=== PATIENT | male | born 1955 | race Caucasian/White ===

== ENCOUNTER 2018-08-20 11:23 | Inpatient (IN) | payer MEDICARE, MEDICAID ==
[~2018-08-20] VITALS: Ht 182.9 cm; Wt 83.0 kg
[2018-08-20] MEDS ORDERED: TEMAZEPAM 7.5 MG CAPSULE PO PRN (12:30)
[2018-08-20] MEDS ORDERED: MAG HYDROX/AL HYDROX/SIMETH 30 ML UDC PO PRN (12:30)
[2018-08-20] MEDS ORDERED: ACETAMINOPHEN 325 MG TABLET PO PRN (12:30)
[2018-08-20] MEDS ORDERED: MAGNESIUM HYDROXIDE 30 ML UDC PO PRN (12:30)
[2018-08-20] MEDS ORDERED: LORAZEPAM 0.5 MG TABLET PO PRN (12:30)
[2018-08-20 13:50] VITALS: BP 132/80
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
[2018-08-20] MEDS ORDERED: AMLO5TAB9 PO (15:46)
[2018-08-20] MEDS ORDERED: HALO10TA13 PO (15:46)
[2018-08-20] MEDS ORDERED: DIVA500T2 PO (15:46)
[2018-08-20] MEDS ORDERED: BENZ2TAB7 PO (15:46)
[2018-08-20] MEDS ORDERED: DIPH25CA83 PO (15:46)
[2018-08-20 16:00] VITALS: BP 103/69
[2018-08-20] MEDS: BENZTROPINE MESYLATE (1 MG) 1 MG TABLET PO SCH (16:52)
[2018-08-20] MEDS ORDERED: diphenhydrAMINE HCL 25 MG CAPSULE PO SCH (18:00)
[2018-08-20 20:13] VITALS: BP 134/77
[2018-08-20] MEDS: diphenhydrAMINE HCL 25 MG CAPSULE PO SCH (21:18)
[2018-08-20] MEDS ORDERED: DIVALPROEX SODIUM 250 MG TABLET.DR PO ONE (21:30)
[2018-08-20] MEDS ORDERED: BENZTROPINE MESYLATE (1 MG) 1 MG TABLET PO SCH (22:00)
[2018-08-20] MEDS ORDERED: DIVALPROEX SODIUM 250 MG TABLET.DR PO SCH (22:00)
[2018-08-20] MEDS: HALOPERIDOL 5 MG TABLET PO SCH (22:11)
[2018-08-21 06:27] LABS: BASOPHILS % (AUTO) 0.9 % (0.0-2.0); EOSINOPHILS % (AUTO) 2.2 % (0.0-6.0); HEMATOCRIT 41 % (39-51); HEMOGLOBIN 13.8 g/dL (13.5-17.5); LYMPHOCYTES # (AUTO) 1.5 /CMM (0.8-4.8); LYMPHOCYTES % (AUTO) 31.4 % (20.0-44.0); MEAN CORPUSCULAR HGB CONC 34 g/dl (31.0-36.0); MEAN CORPUSCULAR VOLUME 94 fL (80-96); MONOCYTES # (AUTO) 0.5 /CMM (0.1-1.30); MONOCYTES % (AUTO) 10.1 % (2.0-12.0); NEUTROPHILS # (AUTO) 2.6 /CMM (1.8-8.9); NEUTROPHILS % (AUTO) 55.4 % (43.0-81.0); PLATELET COUNT (AUTO) 163 /CMM (150-450); WHITE BLOOD COUNT (AUTO) 4.6 K/uL (4.3-11.0)
[2018-08-21 06:41] LABS: ALBUMIN 3.6 g/dL (3.4-5.0); BILIRUBIN,TOTAL 1.4 mg/dL (0.2-1.0); CALCIUM, SERUM 9.3 mg/dL (8.5-10.1); CREATININE 1.3 mg/dL (0.6-1.3); MAGNESIUM 1.8 mg/dL (1.8-2.4); PHOSPHORUS 3.6 mg/dL (2.5-4.9); POTASSIUM 4.4 mmol/L (3.5-5.1); TOTAL PROTEIN, SERUM 6.5 g/dL (6.4-8.2)
[2018-08-21 06:45] LABS: CHOLESTEROL 246 mg/dL (<200); HDL CHOLESTEROL 58 mg/dL (40-60); LDL 162 mg/dL (0-99); TRIGLYCERIDES 131 mg/dL (30-150)
[2018-08-21 08:00] VITALS: BP 113/76
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
[2018-08-21] MEDS: HALOPERIDOL 5 MG TABLET PO SCH ×3 (09:16→16:23)
[2018-08-21] MEDS: DIVALPROEX SODIUM 250 MG TABLET.DR PO SCH ×3 (09:16→16:47)
[2018-08-21] MEDS: BENZTROPINE MESYLATE (1 MG) 1 MG TABLET PO SCH ×2 (09:16→16:23)
[2018-08-21] MEDS: AMLODIPINE BESYLATE 5 MG TABLET PO SCH (09:16)
--- NOTE | 2018-08-21 11:09 | NUR ---
SW contacted amirah Cunha at [facility] [address] [place], [place] [phone] who stated pt is welcomed back to the facility as long as pt is stable and compliant with medication.
--- NOTE | 2018-08-21 11:48 | NUR ---
INITIAL DISCHARGE PLAN: Patient will return to [facility]. FERNANDA contacted Larry Simmons case manger at [facility] [address] [place], [place] [phone] who stated pt is welcomed back to the facility as long as pt is stable and compliant with medication. FERNANDA will help form a safe and proper discharge in collaboration with .
[2018-08-21 16:00] VITALS: BP 135/73
[2018-08-21 20:00] VITALS: BP 119/79
[2018-08-21] MEDS: ATORVASTATIN 10 MG TABLET PO SCH (21:54)
[2018-08-21] MEDS: diphenhydrAMINE HCL 25 MG CAPSULE PO SCH (21:54)
[2018-08-22 08:02] VITALS: BP 105/64
[2018-08-22] MEDS: BENZTROPINE MESYLATE (1 MG) 1 MG TABLET PO SCH ×2 (09:32→17:26)
[2018-08-22] MEDS: DIVALPROEX SODIUM 250 MG TABLET.DR PO SCH ×3 (09:34→17:26)
[2018-08-22] MEDS: HALOPERIDOL 5 MG TABLET PO SCH ×3 (09:34→17:26)
[2018-08-22] MEDS: AMLODIPINE BESYLATE 5 MG TABLET PO SCH (09:39)
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
[2018-08-22 16:04] VITALS: BP 120/78
--- NOTE | 2018-08-22 16:08 | NUR ---
Patient was calm, cooperative, wee groomed, paced the hallway and ate all his meals. There was no violence or any homicidal attempts on staff or fellow patients. Will continue to monitor patient.
[2018-08-22 20:00] VITALS: BP 154/90
[2018-08-22] MEDS: ATORVASTATIN 10 MG TABLET PO SCH (21:30)
[2018-08-22] MEDS: diphenhydrAMINE HCL 25 MG CAPSULE PO SCH (21:30)
[2018-08-23 08:00] VITALS: BP 109/65
[2018-08-23] MEDS: BENZTROPINE MESYLATE (1 MG) 1 MG TABLET PO SCH ×2 (08:04→16:07)
[2018-08-23] MEDS: DIVALPROEX SODIUM 250 MG TABLET.DR PO SCH ×3 (08:04→16:06)
[2018-08-23] MEDS: HALOPERIDOL 5 MG TABLET PO SCH ×3 (08:04→16:06)
[2018-08-23] MEDS: AMLODIPINE BESYLATE 5 MG TABLET PO SCH (08:05)
[2018-08-23 16:00] VITALS: BP 104/56
[2018-08-23 20:00] VITALS: BP 100/64
[2018-08-23] MEDS: ATORVASTATIN 10 MG TABLET PO SCH (22:07)
[2018-08-23] MEDS: diphenhydrAMINE HCL 25 MG CAPSULE PO SCH (22:07)
[2018-08-24 08:00] VITALS: BP 106/64
[2018-08-24] MEDS: AMLODIPINE BESYLATE 5 MG TABLET PO SCH (09:00)
[2018-08-24] MEDS: DIVALPROEX SODIUM 250 MG TABLET.DR PO SCH ×3 (09:04→16:22)
[2018-08-24] MEDS: HALOPERIDOL 5 MG TABLET PO SCH ×3 (09:04→16:23)
[2018-08-24] MEDS: BENZTROPINE MESYLATE (1 MG) 1 MG TABLET PO SCH ×2 (09:04→16:23)
[2018-08-24 19:26] VITALS: BP 104/62
[2018-08-24] MEDS: ATORVASTATIN 10 MG TABLET PO SCH (22:05)
[2018-08-24] MEDS: diphenhydrAMINE HCL 25 MG CAPSULE PO SCH (22:05)
[2018-08-25 08:00] VITALS: BP 113/66
[2018-08-25] MEDS: AMLODIPINE BESYLATE 5 MG TABLET PO SCH (09:00)
[2018-08-25] MEDS: HALOPERIDOL 5 MG TABLET PO SCH ×3 (09:19→16:42)
[2018-08-25] MEDS: BENZTROPINE MESYLATE (1 MG) 1 MG TABLET PO SCH ×2 (09:19→16:42)
[2018-08-25] MEDS: DIVALPROEX SODIUM 250 MG TABLET.DR PO SCH ×3 (09:20→16:42)
[2018-08-25 16:00] VITALS: BP 121/90
[2018-08-25 19:42] VITALS: BP 117/69
[2018-08-25] MEDS: diphenhydrAMINE HCL 25 MG CAPSULE PO SCH (21:10)
[2018-08-25] MEDS: ATORVASTATIN 10 MG TABLET PO SCH (21:11)
[2018-08-26 08:00] VITALS: BP 101/62
[2018-08-26] MEDS: BENZTROPINE MESYLATE (1 MG) 1 MG TABLET PO SCH ×2 (08:27→12:02)
[2018-08-26] MEDS: DIVALPROEX SODIUM 250 MG TABLET.DR PO SCH ×2 (08:27→12:02)
[2018-08-26] MEDS: HALOPERIDOL 5 MG TABLET PO SCH ×2 (08:27→12:02)
[2018-08-26 08:30] VITALS: BP 101/62
[2018-08-26] MEDS: AMLODIPINE BESYLATE 5 MG TABLET PO SCH (08:30)
--- NOTE | 2018-08-26 08:59 | NUR ---
FERNANDA contacted Becky, retail warehouse supervisor at [facility] [address] [place], [place] [phone] and informed her pt was discharging on this present day. Becky requested pt be discharged via taxi as she stated pt is mandated to be at that home and she was concerned pt would not return if given a TAP Card.
--- NOTE | 2018-08-26 09:15 | NUR ---
DISCHARGE NOTE: Pt will be discharged at 1:00pm via [facility] TAXI VOUCHER to [facility] [address] [place], [place] [phone]. SW contacted Becky the datawarehouse developer at [facility] who agrees with discharge. Pts mood is euthymic with congruent affect. Pt denied visual/auditory hallucinations and denied suicidal/homicidal ideation. Pt was given a referral to [address] [address] and was encouraged to present at 9:00am for an intake and also provided him with a referral to [place] [id number] [facility] [id number] . The multidisciplinary exit care form was done, printed, signed, and given to the patient.
--- NOTE | 2018-08-26 10:50 | NUR ---
FERNANDA faxed clinical information to Larry Simmons, clinician at [facility] [address] [facility], [place] [phone] .
--- NOTE | 2018-08-26 14:33 | NUR ---
NURSING DISCHARGE NOTE: PT WAS DISCHARGED TODAY AT 1430 TO [facility] AT [address] [place], [place]. , VIA TAXI. PT LEFT THE UNIT AMBULATORY ACCOMPANIED BY 1 OVERLOCK HEMMER TO THE TAXI. REPORT WAS GIVEN TO OLEGARIO AT [phone] AND PRESCRIPTIONS WERE FAXED TO [facility] AT . DISCHARGE ORDERS WERE GIVEN BY DR. JUNIOR WITH PRESCRIPTIONS WELL. PT HAS BEEN MEDICALLY CLEARED FOR DISCHARGE BY DR. PHELPS WITH ORDER TO CONTINUE ALL ROUTINE MEDS. PT IS A&OX3-4, CALM, COOPERATIVE, PLEASANT, MED COMPLIANT, DENIES SI/HI/AVH AT THE TIME OF DISCHARGE. NO S/S OF ANY DISTRESS NOTED. NO C/O PAIN OR ANY DISCOMFORT. SKIN INTACT. VS STABLE. PT WAS COOPERATIVE WITH DISCHARGE PROCESS AND HAS SIGNED ALL PAPERWORK. PRESCRIPTIONS WERE GIVEN TO PT WELL AND PT HAS VERBALIZED UNDERSTANDING OF MEDICATIONS AND DISCHARGE INSTRUCTIONS. ALL BELONGINGS WERE GIVEN TO PT WELL.
--- NOTE | 2018-08-26 14:50 | NUR ---
Group Note: Pt did not participate in the group therapy session 08/26/18 at 2pm because he was discharged at 2:30PM.
== END 2018-08-26 14:30 | disposition home or self-care (01) | DRG 885 ==
LOC: GPS 11:23
PROVIDERS: ADMIT Psychiatry & Neurology Psychiatry; ATTEND Nurse Practitioner Acute Care
DX: F25.0 Schizoaffective disorder, bipolar type (principal); I10 Essential (primary) hypertension; Z85.6 Personal history of leukemia; Z85.46 Personal history of malignant neoplasm of prostate; E78.5 Hyperlipidemia, unspecified; Z91.5 Personal history of self-harm; Z91.14 Patient's other noncompliance with medication regimen; F32.9 Major depressive disorder, single episode, unspecified; Z79.899 Other long term (current) drug therapy; F29 Unspecified psychosis not due to a substance or known physiological condition
CPT/HCPCS: 36415; 80053-TC; 80061-TC; 80164-TC; 83735-TC; 84100-TC; 85025-TC; 87081-TC; Q0163

== ENCOUNTER 2020-03-15 04:56 | Inpatient (IN) | payer MEDICARE, OTHER ==
[~2020-03-15] VITALS: Ht 177.8 cm; Wt 64.4 kg
[~2020-03-15 04:56] MED LIST: AMLO-212 PO; BENZ2TAB7 PO; DIPH25CA83 PO; DIVA500T2 PO; HALO10TA13 PO
--- NOTE | 2020-03-15 05:15 | NUR ---
Khalida crane in [facility] - 03/15/20 at 0702 by EUGENIA left hand 18g and left ac [address]
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
--- NOTE | 2020-03-15 05:20 | NUR ---
left hand 18g and left ac [address]
--- NOTE | 2020-03-15 05:22 | NUR ---
pt taken to ct
[2020-03-15 05:28] LABS: BASOPHILS % (AUTO) 0.4 % (0.0-2.0); EOSINOPHILS % (AUTO) 0.6 % (0.0-6.0); HEMATOCRIT 48 % (39-51); HEMOGLOBIN 16.4 g/dL (13.5-17.5); LYMPHOCYTES # (AUTO) 1.1 /CMM (0.8-4.8); LYMPHOCYTES % (AUTO) 14.7 % (20.0-44.0); MEAN CORPUSCULAR HGB CONC 34 g/dl (31.0-36.0); MEAN CORPUSCULAR VOLUME 93 fL (80-96); MONOCYTES # (AUTO) 0.6 /CMM (0.1-1.30); MONOCYTES % (AUTO) 8.3 % (2.0-12.0); NEUTROPHILS # (AUTO) 5.5 /CMM (1.8-8.9); PLATELET COUNT (AUTO) 134 /CMM (150-450); RED BLOOD CELL COUNT(AUTO) 5.19 MIL/uL (4.5-6.0); WHITE BLOOD COUNT (AUTO) 7.3 K/uL (4.3-11.0)
--- NOTE | 2020-03-15 05:30 | NUR ---
covid swab sent to lab
[2020-03-15 05:42] LABS: ALANINE AMINOTRANSFERASE 40 U/L (12-78); ALBUMIN 4.1 g/dL (3.4-5.0); ALCOHOL, BLOOD < 3 mg/dL (0-0); ALKALINE PHOSPHATASE 73 U/L (46-116); ASPARTATE AMINOTRANSFERASE 22 U/L (15-37); BILIRUBIN,DIRECT 0.4 mg/dL (0.0-0.2); CALCIUM, SERUM 9.9 mg/dL (8.5-10.1); CARBON DIOXIDE 28 mmol/L (21-32); CHLORIDE 97 mmol/L (98-107); CREATININE 1.3 mg/dL (0.6-1.3); GLUCOSE 180 mg/dL (74-106); POTASSIUM 3.9 mmol/L (3.5-5.1); SODIUM SERUM 135 mmol/L (136-145); TOTAL PROTEIN, SERUM 7.7 g/dL (6.4-8.2); UREA NITROGEN, BLOOD 26 mg/dL (7-18)
[2020-03-15 05:49] LABS: ACETAMINOPHEN < 10 ug/ml (10-30)
--- NOTE | 2020-03-15 06:05 | NUR ---
urine sent to lab
[2020-03-15 06:59] LABS: BILIRUBIN,URINE NEGATIVE (NEGATIVE); COLOR,URINE YELLOW (YELLOW); LEUKOCYTE ESTERASE ,URINE NEGATIVE (NEGATIVE); NITRITE, URINE NEGATIVE (NEGATIVE); PROTEIN,URINE NEGATIVE (NEGATIVE); UGLUCOSE 250 MG/DL mg/dL (NEGATIVE)
--- NOTE | 2020-03-15 07:16 | NUR ---
ART JAILKEEPER PAGED
--- NOTE | 2020-03-15 08:08 | NUR ---
ART CAPILLA AT BEDSIDE
[2020-03-15 08:46] LABS: BACTERIA,URINE Rare /HPF (None Seen); RBC,URINE 0-2 /HPF (0-2); SQUAMOUS EPITHELIAL CELL,UR Rare /HPF (None Seen); WBC,URINE 0-2 /HPF (0-3)
[2020-03-15] MEDS ORDERED: ZIPR40CA2 PO (08:57)
[2020-03-15] MEDS ORDERED: LINA5TAB PO (08:57)
[2020-03-15] MEDS ORDERED: ATOR40TA PO (08:57)
--- NOTE | 2020-03-15 11:46 | NUR ---
PATIENT IN BED ASLEEP, EASILY AROUSABLE BY VOICE. HOOKED TO MONITOR. WILL CONTINUE TO MONITOR ACCRODINGLY. KEPT SAFE AND COMFORTABLE
--- NOTE | 2020-03-15 13:47 | NUR ---
COVID PCR SWAB DONE AND SENT TO LAB
--- NOTE | 2020-03-15 15:23 | NUR ---
GOT BED 216-B
--- NOTE | 2020-03-15 15:52 | NUR ---
REPORT GIVEN TO YAMILE MACIAS OF [employer]
[2020-03-15 16:00] VITALS: BP 98/64
--- NOTE | 2020-03-15 16:07 | NUR ---
IV removed. Catheter intact and site benign. Pressure and 4x4 applied to site. No bleeding noted.
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
[2020-03-15] MEDS ORDERED: DEXTROSE 50%-WATER 50 ML DISP.SYRIN IV PRN (17:00)
[2020-03-15] MEDS ORDERED: MAGNESIUM HYDROXIDE 30 ML UDC PO PRN (17:00)
[2020-03-15] MEDS ORDERED: ACETAMINOPHEN 325 MG TABLET PO PRN (17:00)
[2020-03-15] MEDS ORDERED: MAG HYDROX/AL HYDROX/SIMETH 30 ML UDC PO PRN (17:00)
[2020-03-15] MEDS ORDERED: BLOOD SUGAR DIAGNOSTIC 1 EACH STRIP IN ONE (17:00)
[2020-03-15] MEDS: BLOOD SUGAR DIAGNOSTIC 1 EACH STRIP IN SCH ×2 (17:31→21:30)
[2020-03-15 20:59] VITALS: BP 93/45
[2020-03-15] MEDS: INSULIN REGULAR, HUMAN 100 UNIT/ML 3 ML VIAL SQ PRN (21:41)
--- NOTE | 2020-03-15 21:42 | NUR ---
GPS RN note; EW=389 mg/dl,refused coverage.
[2020-03-15] MEDS ORDERED: HALOPERIDOL 5 MG TABLET PO ONE (22:00)
[2020-03-15] MEDS: BENZTROPINE MESYLATE (1 MG) 1 MG TABLET PO SCH (22:11)
[2020-03-15] MEDS: DIVALPROEX SODIUM 250 MG TABLET.DR PO SCH (22:11)
[2020-03-16] MEDS: BLOOD SUGAR DIAGNOSTIC 1 EACH STRIP IN SCH ×4 (07:30→22:11)
[2020-03-16 08:00] VITALS: BP 116/84
[2020-03-16] MEDS: BENZTROPINE MESYLATE (1 MG) 1 MG TABLET PO SCH ×3 (09:44→16:16)
[2020-03-16] MEDS: HALOPERIDOL 5 MG TABLET PO SCH ×3 (09:44→16:16)
[2020-03-16] MEDS: DIVALPROEX SODIUM 250 MG TABLET.DR PO SCH ×3 (09:44→16:16)
[2020-03-16] MEDS: ATORVASTATIN 40 MG TABLET PO SCH (09:45)
[2020-03-16] MEDS: LINAGLIPTIN 5 MG TABLET PO SCH (09:45)
[2020-03-16] MEDS: AMLODIPINE BESYLATE 5 MG TABLET PO SCH (09:46)
--- NOTE | 2020-03-16 15:35 | NUR ---
RN-CO: ATIVAN GIVEN FOR INAPPROPRIATE BEHAVIOR. M/B PT IS VERY TOUCHY TO STAFF.
[2020-03-16 15:41] LABS: ALBUMIN 3.2 g/dL (3.4-5.0); BILIRUBIN,TOTAL 1.4 mg/dL (0.2-1.0); CALCIUM, SERUM 9.1 mg/dL (8.5-10.1); CREATININE 1.5 mg/dL (0.6-1.3); POTASSIUM 3.7 mmol/L (3.5-5.1); TOTAL PROTEIN, SERUM 6.1 g/dL (6.4-8.2)
[2020-03-16 15:43] LABS: CHOLESTEROL 195 mg/dL (<200); HDL CHOLESTEROL 76 mg/dL (40-60); LDL 96 mg/dL (0-99); TRIGLYCERIDES 113 mg/dL (30-150)
[2020-03-16 16:00] VITALS: BP 99/57
[2020-03-16] MEDS: LORAZEPAM 0.5 MG TABLET PO PRN (16:17)
[2020-03-16] MEDS: INSULIN REGULAR, HUMAN 100 UNIT/ML 3 ML VIAL SQ PRN (16:59)
[2020-03-16 20:30] VITALS: BP 101/62
--- NOTE | 2020-03-16 22:12 | NUR ---
RN note: BS =109 mg/dl ,no coverage.
[2020-03-17] MEDS: BLOOD SUGAR DIAGNOSTIC 1 EACH STRIP IN SCH ×4 (07:55→22:09)
[2020-03-17] MEDS: INSULIN REGULAR, HUMAN 100 UNIT/ML 3 ML VIAL SQ PRN ×3 (07:57→22:21)
[2020-03-17 08:00] VITALS: BP 104/73
[2020-03-17] MEDS: ATORVASTATIN 40 MG TABLET PO SCH (09:28)
[2020-03-17] MEDS: LINAGLIPTIN 5 MG TABLET PO SCH (09:28)
[2020-03-17] MEDS: HALOPERIDOL 5 MG TABLET PO SCH ×4 (09:28→22:11)
[2020-03-17] MEDS: BENZTROPINE MESYLATE (1 MG) 1 MG TABLET PO SCH ×3 (09:28→16:29)
[2020-03-17] MEDS: DIVALPROEX SODIUM 250 MG TABLET.DR PO SCH ×3 (09:28→16:29)
[2020-03-17] MEDS: AMLODIPINE BESYLATE 5 MG TABLET PO SCH (09:29)
[2020-03-17 16:00] VITALS: BP 112/64
--- NOTE | 2020-03-17 19:30 | NUR ---
GPS RN NOTE, RECEIVED PATIENT AWAKE AND IN BED, NO S/S OR COMPLAINTS OF PAIN AT THIS TIME. PATIENT IS DISPLAYING NO S/S OF APPARENT DISTRESS AT THIS TIME. PATIENT BREATHING IS UNLABORED WITH EQUAL RISE AND FALL OF THE CHEST. PATIENT IS ALERT AND ORIENTED X 1 ON ROOM AIR WITH A SPO2 98%. PATIENT IS COMPLIANT WITH MEDICATIONS, ANXIOUS AT TIMES, CONFUSED, NEEDS REDIRECTION, AND COOPERATIVE. PATIENT DENIES SUICIDAL AND HOMICIDAL IDEATIONS AT THIS TIME. PATIENT ASSISTED WITH TURNING AND REPOSITIONING Q2HR AND PRN FOR COMFORT AND CIRCULATION. PATIENT HAS NO NEEDS AT THIS TIME. PATIENT EDUCATED ON THE USE OF THE CALL ROJAS. PATIENT BED SIDE RAILS UP X 2 FOR SAFETY. PATIENT BED IS LOCKED, LOW, WITH BED ALARM ON. WILL CONTINUE TO MONITOR THIS PATIENT Q15 MINUTES WITH THE HELP OF STAFF TO MAINTAIN SAFETY.
[2020-03-17 19:50] VITALS: BP 126/81
[2020-03-18] MEDS: BLOOD SUGAR DIAGNOSTIC 1 EACH STRIP IN SCH ×4 (07:26→21:57)
[2020-03-18] MEDS: INSULIN REGULAR, HUMAN 100 UNIT/ML 3 ML VIAL SQ PRN ×4 (07:28→22:10)
[2020-03-18 08:00] VITALS: BP 137/90
[2020-03-18] MEDS: DIVALPROEX SODIUM 250 MG TABLET.DR PO SCH ×3 (08:25→16:32)
[2020-03-18] MEDS: LINAGLIPTIN 5 MG TABLET PO SCH (08:25)
[2020-03-18] MEDS: ATORVASTATIN 40 MG TABLET PO SCH (08:25)
[2020-03-18] MEDS: HALOPERIDOL 5 MG TABLET PO SCH ×3 (08:27→21:00)
[2020-03-18] MEDS: BENZTROPINE MESYLATE (1 MG) 1 MG TABLET PO SCH ×3 (08:27→16:32)
[2020-03-18] MEDS: AMLODIPINE BESYLATE 5 MG TABLET PO SCH (08:28)
--- NOTE | 2020-03-18 09:00 | NUR ---
RN NOTE- PT IN ROOM CONFUSED W TREMULOUSNESS AND WEAKNESS, PT ATTEMPTS TO GET OOB AND GO TO BR ON OWN,. BED SIDE COMMODE AND FWW PLACED AT BEDSIDE AND BED ALARM ON. THIS RN STATIONED OUTSIDE ROOM. PO INTAKE GOOD MED COMPLIANT
--- NOTE | 2020-03-18 10:24 | NUR ---
Facility Contact: FERNANDA called [facility] ([phone]) and was informed that this location is a hospital. FERNANDA asked to be transferred to Medical Records to see if they have an alternative address or any contact informations for family. FERNANDA faxed a request for this information as directed to the fax number: [phone].
--- NOTE | 2020-03-18 11:41 | NUR ---
Initial Discharge Plan: Pt is currently homeless. Per pt, he was unable to state a clear discharge plan. SW will work with the pts MD and the pt regarding appropriate discharge planning. SW will form a safe and proper discharge.
--- NOTE | 2020-03-18 11:41 | NUR ---
Family Contact: SW called the pts sister, Criss ([phone]), and discussed that the pt has nowhere to live at this time and that he has a transplant case manager, Hannah, who is attempting to secure placement. SW stated that she will speak to him.
--- NOTE | 2020-03-18 11:42 | NUR ---
B2B Sales RepresentativeProduction Ski Repairer: SW called the pts gearcase assembler, Hannah ([phone]), and left a voicemail stating that the SW would like to discuss the pts discharge plan.
--- NOTE | 2020-03-18 15:55 | NUR ---
RN NOTE- PT FOUND W CONTINUED AMBULATING IN ROOM AND HALLS WITHOUT ASSIST OR FWW. REDIRECTED AND ASSISTED. PT CONFUSED. STATES "IM DIZZY" VS- BP- 124/78, HR-90. RR- 18, T- 98.0 SATS 98%RA. ACCU CHECK/BS- 127 ORIENTED TO PERSON ONLY. PLACED IN LATANYA CHAIR AT PRESENT. MONITOR.
[2020-03-18 16:00] VITALS: BP 125/69
--- NOTE | 2020-03-18 19:30 | NUR ---
GPS RN NOTE, RECEIVED PATIENT AWAKE AND IN BED, NO S/S OR COMPLAINTS OF PAIN AT THIS TIME. PATIENT IS DISPLAYING NO S/S OF APPARENT DISTRESS AT THIS TIME. PATIENT BREATHING IS UNLABORED WITH EQUAL RISE AND FALL OF THE CHEST. PATIENT IS ALERT AND ORIENTED X 1 ON ROOM AIR WITH A SPO2 96%. PATIENT IS COMPLIANT WITH MEDICATIONS, ANXIOUS AT TIMES, CONFUSED, NEEDS REDIRECTION, AND COOPERATIVE. PATIENT DENIES SUICIDAL AND HOMICIDAL IDEATIONS AT THIS TIME. PATIENT ASSISTED WITH TURNING AND REPOSITIONING Q2HR AND PRN FOR COMFORT AND CIRCULATION. PATIENT HAS NO NEEDS AT THIS TIME. PATIENT EDUCATED ON THE USE OF THE CALL ROJAS. PATIENT BED SIDE RAILS UP X 2 FOR SAFETY. PATIENT BED IS LOCKED, LOW, WITH BED ALARM ON. WILL CONTINUE TO MONITOR THIS PATIENT Q15 MINUTES WITH THE HELP OF STAFF TO MAINTAIN SAFETY.
[2020-03-18 20:00] VITALS: BP 113/68
--- NOTE | 2020-03-18 21:50 | NUR ---
GPS RN NOTE, PATIENT REFUSED HALDOL 10MG PO Q 2100 SCHEDULED. OFFERED THREE TIMES AND STILL PATIENT REFUSED STATING, " NO I JUST DON'T FEEL GOOD AND I THINK IT'S THE MEDICATION ". EDUCATED PATIENT ON THE RISKS AND BENEFITS OF TAKING AND REFUSING HALDOL. WILL CONTINUE TO MONITOR THIS PATIENT.
--- NOTE | 2020-03-18 21:57 | NUR ---
GPS RN NOTE, PERFORMED ACCU CHECK ON PATIENT WITH A BLOOD SUGAR RESULT OF 253. GAVE 6 UNITS OF REGULAR INSULIN PER SLIDING SCALE. WILL CONTINUE TO MONITOR THIS PATIENT.
[2020-03-19] MEDS: BLOOD SUGAR DIAGNOSTIC 1 EACH STRIP IN SCH ×4 (07:03→21:48)
[2020-03-19] MEDS: INSULIN REGULAR, HUMAN 100 UNIT/ML 3 ML VIAL SQ PRN ×2 (07:05→17:28)
[2020-03-19 08:00] VITALS: BP 146/90
[2020-03-19] MEDS: DIVALPROEX SODIUM 250 MG TABLET.DR PO SCH ×3 (08:12→16:29)
[2020-03-19] MEDS: HALOPERIDOL 5 MG TABLET PO SCH ×3 (08:12→21:37)
[2020-03-19] MEDS: BENZTROPINE MESYLATE (1 MG) 1 MG TABLET PO SCH ×3 (08:12→16:29)
[2020-03-19] MEDS: LINAGLIPTIN 5 MG TABLET PO SCH (08:13)
[2020-03-19] MEDS: AMLODIPINE BESYLATE 5 MG TABLET PO SCH (08:13)
[2020-03-19] MEDS: ATORVASTATIN 40 MG TABLET PO SCH (08:13)
--- NOTE | 2020-03-19 11:32 | NUR ---
RN-CO: PT REFUSED MORNING MEDS AND BEFORE LUNCH ACCU CHECK.
[2020-03-19] MEDS: LORAZEPAM 0.5 MG TABLET PO PRN ×2 (13:35→19:17)
[2020-03-19 16:00] VITALS: BP 100/64
--- NOTE | 2020-03-19 19:18 | NUR ---
RN-CO: ATIVAN 1 MG PO GIVEN AT 1705. FORGET TO SCAN AT 1705.
--- NOTE | 2020-03-19 19:30 | NUR ---
GPS RN NOTE, RECEIVED PATIENT AWAKE AND IN BED, NO S/S OR COMPLAINTS OF PAIN AT THIS TIME. PATIENT IS DISPLAYING NO S/S OF APPARENT DISTRESS AT THIS TIME. PATIENT BREATHING IS UNLABORED WITH EQUAL RISE AND FALL OF THE CHEST. PATIENT IS ALERT AND ORIENTED X 1 ON ROOM AIR WITH A SPO2 99%. PATIENT IS COMPLIANT WITH MEDICATIONS, ANXIOUS AT TIMES, CONFUSED, NEEDS REDIRECTION, AND COOPERATIVE. PATIENT DENIES SUICIDAL AND HOMICIDAL IDEATIONS AT THIS TIME. PATIENT ASSISTED WITH TURNING AND REPOSITIONING Q2HR AND PRN FOR COMFORT AND CIRCULATION. PATIENT HAS NO NEEDS AT THIS TIME. PATIENT EDUCATED ON THE USE OF THE CALL ROJAS. PATIENT BED SIDE RAILS UP X 2 FOR SAFETY. PATIENT BED IS LOCKED, LOW, WITH BED ALARM ON. WILL CONTINUE TO MONITOR THIS PATIENT Q15 MINUTES WITH THE HELP OF STAFF TO MAINTAIN SAFETY.
[2020-03-19 19:49] VITALS: BP 120/77
--- NOTE | 2020-03-19 21:48 | NUR ---
GPS RN NOTE, PERFORMED ACCU CHECK ON PATIENT WITH A BLOOD SUGAR RESULT OF 115. NO INSULIN GIVEN PER SLIDING SCALE. WILL CONTINUE TO MONITOR THIS PATIENT.
[2020-03-19] MEDS ORDERED: LOPERAMIDE HCL (2 MG CAP) 2 MG CAPSULE PO PRN (23:00)
--- NOTE | 2020-03-20 02:25 | NUR ---
GPS RN NOTE, PATIENT HAS A HAD TWO EPISODE OF DIARRHEA DURING PM SHIFT. PATIENT IS REQUESTING SOMETHING TO HELP STOP HIS DIARRHEA. PAGED [facility] AND INFORMED DR ZEN RIVAS OF MY FINDINGS. DR ZEN RIVAS ORDERED TO GIVE LOPERAMIDE 2MG CAP PO Q4HR PRN AND TO ISOLATE PATIENT. ALL ORDERS NOTED AND CARRIED OUT WILL CONTINUE TO MONITOR THIS PATIENT.
[2020-03-20] MEDS: LOPERAMIDE HCL (2 MG CAP) 2 MG CAPSULE PO PRN (03:53)
--- NOTE | 2020-03-20 03:53 | NUR ---
GPS RN NOTE, PATIENT HAS A COMPLAINT DIARRHEA. PATIENT IS REQUESTING SOMETHING TO HELP STOP HIS DIARRHEA. PATIENT VITAL SIGNS ARE STABLE. GAVE LOPERAMIDE 2MG CAP PO Q4HR PRN ORDERED. WILL CONTINUE TO MONITOR THIS PATIENT.
[2020-03-20] MEDS ORDERED: Z GUARD REMEDY 2 OZ OINT TP PRN (05:30)
[2020-03-20] MEDS: BLOOD SUGAR DIAGNOSTIC 1 EACH STRIP IN SCH ×4 (07:30→21:36)
[2020-03-20 07:36] LABS: CALCIUM, SERUM 9.4 mg/dL (8.5-10.1); MAGNESIUM 3.1 mg/dL (1.8-2.4); POTASSIUM 3.4 mmol/L (3.5-5.1)
[2020-03-20 07:53] LABS: BASOPHILS % (AUTO) 0.3 % (0.0-2.0); EOSINOPHILS % (AUTO) 0.7 % (0.0-6.0); HEMATOCRIT 41 % (39-51); HEMOGLOBIN 13.9 g/dL (13.5-17.5); LYMPHOCYTES # (AUTO) 1.6 /CMM (0.8-4.8); LYMPHOCYTES % (AUTO) 17.8 % (20.0-44.0); MEAN CORPUSCULAR HGB CONC 34 g/dl (31.0-36.0); MEAN CORPUSCULAR VOLUME 93 fL (80-96); MONOCYTES # (AUTO) 0.8 /CMM (0.1-1.30); MONOCYTES % (AUTO) 9.2 % (2.0-12.0); NEUTROPHILS # (AUTO) 6.3 /CMM (1.8-8.9); PLATELET COUNT (AUTO) 232 /CMM (150-450); RED BLOOD CELL COUNT(AUTO) 4.46 MIL/uL (4.5-6.0); WHITE BLOOD COUNT (AUTO) 8.8 K/uL (4.3-11.0)
[2020-03-20 08:00] VITALS: BP 136/64
[2020-03-20] MEDS ORDERED: POTASSIUM CHLORIDE 20 MEQ TAB.PRT.SR PO ONE (08:00)
[2020-03-20] MEDS: AMLODIPINE BESYLATE 5 MG TABLET PO SCH (08:57)
[2020-03-20] MEDS: ATORVASTATIN 40 MG TABLET PO SCH (08:57)
[2020-03-20] MEDS: LINAGLIPTIN 5 MG TABLET PO SCH (08:58)
[2020-03-20] MEDS: DIVALPROEX SODIUM 250 MG TABLET.DR PO SCH ×3 (08:58→17:49)
[2020-03-20] MEDS: BENZTROPINE MESYLATE (1 MG) 1 MG TABLET PO SCH ×3 (08:58→17:49)
[2020-03-20] MEDS: HALOPERIDOL 5 MG TABLET PO SCH ×3 (08:58→21:03)
[2020-03-20] MEDS: INSULIN REGULAR, HUMAN 100 UNIT/ML 3 ML VIAL SQ PRN ×3 (09:06→21:51)
[2020-03-20 16:00] VITALS: BP 101/56
[2020-03-20 22:16] VITALS: BP 121/50
[2020-03-20] MEDS: LORAZEPAM 0.5 MG TABLET PO PRN (23:02)
--- NOTE | 2020-03-20 23:09 | NUR ---
GPS RN note Pt is feeling anxious, screaming, yelling and keep taking the gown off. Administered ativan 0.5 mg/2tabs/po/prn as ordered. VS is stable. Safety precautions is maintained.
[2020-03-21] MEDS: INSULIN REGULAR, HUMAN 100 UNIT/ML 3 ML VIAL SQ PRN ×4 (07:50→22:44)
[2020-03-21] MEDS: BLOOD SUGAR DIAGNOSTIC 1 EACH STRIP IN SCH ×4 (07:57→22:36)
[2020-03-21] MEDS: AMLODIPINE BESYLATE 5 MG TABLET PO SCH (08:18)
[2020-03-21] MEDS: HALOPERIDOL 5 MG TABLET PO SCH ×2 (08:18→16:10)
[2020-03-21] MEDS: LINAGLIPTIN 5 MG TABLET PO SCH (08:18)
[2020-03-21] MEDS: ATORVASTATIN 40 MG TABLET PO SCH (08:18)
[2020-03-21] MEDS: DIVALPROEX SODIUM 250 MG TABLET.DR PO SCH ×3 (08:18→16:10)
[2020-03-21] MEDS: BENZTROPINE MESYLATE (1 MG) 1 MG TABLET PO SCH ×3 (08:18→16:10)
--- NOTE | 2020-03-21 09:00 | NUR ---
RN NOTE- PT CONFUSED DISORIENTED UNINTELLIGIBLE SPEECH AT TIMES DISORGANIZED PO INTAKE POOR THIS MORNING AT 25%, MED COMPLIANT, ANXIOUS. PLACED IN BED AFTER BREAKFAST. PT SLEEPING. REPOSITIONED MONITORING
[2020-03-21 09:25] VITALS: BP 151/91
--- NOTE | 2020-03-21 10:06 | NUR ---
SNF Referral: FERNANDA faxed a referral to [facility] with attention to Michelle to the fax number: [phone].
--- NOTE | 2020-03-21 10:50 | NUR ---
Individual Intervention: SW attempted to conduct an individual intervention with the pt but he appeared to be exhibiting inappropriate sexual behaviors and stated to the SW, "I wish you were my " as he was touching himself inappropriately. SW deemed the pt inappropriate for individual therapy at this time.
--- NOTE | 2020-03-21 12:58 | NUR ---
RN NOTE- PT W EPISODE LOOSE STOOLS. CLEANED UP AND CX TAKEN. LOPERAMIDE PRN GIVEN. WILL NOTIFY MD AWAIT ORDERS.
[2020-03-21] MEDS: LOPERAMIDE HCL (2 MG CAP) 2 MG CAPSULE PO PRN (13:02)
--- NOTE | 2020-03-21 13:09 | NUR ---
RN NOTE- PT HAD TWO LOOSE STOOLS OVERNIGHT 03/20 PLUS ONE JUST THIS AFTERNOON. DR CAST ORDERED LAB CX SENT FOR CDIFF.
[2020-03-21] MEDS: LORAZEPAM 0.5 MG TABLET PO PRN (13:44)
--- NOTE | 2020-03-21 13:46 | NUR ---
RN NOTE- PT ANXIOUS CLIMBING OUT OF LATANYA CHAIR BANGING ON TRAY. ATIVAN 1 MG GIVEN
--- NOTE | 2020-03-21 14:56 | NUR ---
RN NOTE- PT CALMER . RX EFFECTIVE
[2020-03-21 16:16] VITALS: BP 121/78
[2020-03-21 20:03] VITALS: BP 156/88
[2020-03-21] MEDS ORDERED: HALOPERIDOL 5 MG TABLET PO SCH (22:00)
[2020-03-22] MEDS: TEMAZEPAM 7.5 MG CAPSULE PO PRN (00:57)
[2020-03-22] MEDS: BLOOD SUGAR DIAGNOSTIC 1 EACH STRIP IN SCH ×4 (07:37→22:38)
[2020-03-22] MEDS: INSULIN REGULAR, HUMAN 100 UNIT/ML 3 ML VIAL SQ PRN ×3 (07:41→17:20)
[2020-03-22 08:00] VITALS: BP 115/62
[2020-03-22] MEDS: AMLODIPINE BESYLATE 5 MG TABLET PO SCH (09:00)
--- NOTE | 2020-03-22 09:00 | NUR ---
RN NOTE- LETHARGIC PT CONFUSED DISORIENTED. PLACED IN BED PT SLEEPING. REPOSITIONED MONITORING PT SACRAL AREA ERUTHEMATOUS. REPOSITIONED TURNED Q 1-2 H. Z GUARD APPLIED LIBERALLY.
[2020-03-22] MEDS: BENZTROPINE MESYLATE (1 MG) 1 MG TABLET PO SCH ×3 (09:18→17:05)
[2020-03-22] MEDS: ATORVASTATIN 40 MG TABLET PO SCH (09:18)
[2020-03-22] MEDS: LINAGLIPTIN 5 MG TABLET PO SCH (09:18)
[2020-03-22] MEDS: HALOPERIDOL 5 MG TABLET PO SCH ×2 (09:18→17:06)
[2020-03-22] MEDS: DIVALPROEX SODIUM 250 MG TABLET.DR PO SCH ×3 (09:19→17:05)
--- NOTE | 2020-03-22 09:54 | NUR ---
PC Hearing: Pts [phone] hold was upheld for grave disability.
--- NOTE | 2020-03-22 11:46 | NUR ---
SNF Contact: Michelle ([phone]) from [facility] contacted the SW and stated that the pt was accepted to their facility.
--- NOTE | 2020-03-22 11:47 | NUR ---
Motorbike CourierJunior Brand Manager: SW called Hannah ([phone]) and discussed the Assisted Living Waiver program and informed him that the SW referred the pt to SNF in case the Assisted Living is not set up in time for the discharge. He stated that based off of the information the SW provided on the pts current behaviors that SNF is more appropriate at this time. He stated that he would inform the pts sister.
--- NOTE | 2020-03-22 11:48 | NUR ---
Larry Hagan Contact: FERNANDA left a message for Shara ([phone]) with Larry Hagan in regards to securing Assisted Living for the pt and stated that FERNANDA spoke with showcase maker already and arranged SNF for the discharge plan from the hospital.
--- NOTE | 2020-03-22 12:15 | NUR ---
RN NOTE-PT LETHARGIC SLEEPING. RX NOT ADMINISTERED PT IS SOMNOLENT AND NOT EATIG LUNCH SO ACCU CHECK - 150 / 2 U REG SSI NOT ADMINISTERED.
--- NOTE | 2020-03-22 13:36 | NUR ---
Family Contact: SW called the pts sister, Criss ([phone]), and informed her of the treatment team discussion the SW had with the pts case manager specialist and Larry Hagan. FERNANDA stated that the plan that was agreed upon was to send the pt to a SNF first while trying to secure an Assisted Living. SW informed her of the pts need to continue stabilizing at the SNF and expressed that it is temporary. SW stated that she will keep her involved in the process.
[2020-03-22 16:00] VITALS: BP 123/79
--- NOTE | 2020-03-22 18:06 | NUR ---
RN NOTE- DR JUNIOR SAID TO HOLD ALL PSYCHE MEDS TOMORROW UNTIL HE REASSESSES PATIENT.
[2020-03-22 20:35] VITALS: BP 149/90
--- NOTE | 2020-03-23 | NUR ---
GPS RN NOTES: PT HAD A LARGE BM/DIARRHEA AT 2330. PT CURRENTLY SLEEPING. WILL CONTINUE TO MONITOR AND ASSESS.
[2020-03-23] MEDS: BLOOD SUGAR DIAGNOSTIC 1 EACH STRIP IN SCH ×4 (07:43→21:45)
[2020-03-23 08:00] VITALS: BP 150/90
[2020-03-23] MEDS: LINAGLIPTIN 5 MG TABLET PO SCH (08:25)
[2020-03-23] MEDS: ATORVASTATIN 40 MG TABLET PO SCH (08:25)
[2020-03-23] MEDS: AMLODIPINE BESYLATE 5 MG TABLET PO SCH (08:25)
--- NOTE | 2020-03-23 11:46 | NUR ---
Individual Intervention: SW attempted to conduct an individual intervention in lieu of group therapy due to the lack of involvement in this current patient population. Pt presented in the activities room in a gerichair and appeared to be disorganized and confused. Pt was unable to speak with the SW in coherent sentences. SW deemed the pt inappropriate for individual therapy at this time.
[2020-03-23] MEDS: LORAZEPAM 0.5 MG TABLET PO PRN (12:13)
--- NOTE | 2020-03-23 12:13 | NUR ---
RN-CO: ATIVAN GIVEN FOR RESTLESSNESS.
[2020-03-23 16:00] VITALS: BP 121/83
[2020-03-23 16:12] VITALS: BP 129/68
[2020-03-23] MEDS: INSULIN REGULAR, HUMAN 100 UNIT/ML 3 ML VIAL SQ PRN (17:00)
[2020-03-23] MEDS: clonazePAM 0.5 MG TABLET PO SCH (22:22)
[2020-03-23] MEDS: TEMAZEPAM 7.5 MG CAPSULE PO PRN (23:13)
--- NOTE | 2020-03-23 23:16 | NUR ---
GPS RN NOTES: PT UNABLE TO SLEEP D/T INSOMNIA. RESTORIL 7.5MG 2TABS GIVEN PO ORDERED AT 2314. WILL CONTINUE TO MONITOR.
[2020-03-24] MEDS: LOPERAMIDE HCL (2 MG CAP) 2 MG CAPSULE PO PRN ×3 (02:40→16:18)
--- NOTE | 2020-03-24 02:43 | NUR ---
GPS RN NOTES: PT HAD A LARGE BM/DIARRHEA AT 0215. THIS IS THE SECOND DIARRHEA IN LESS THAN 3 HOURS. PT HAS BEEN CLEANED AND IS CURRENTLY SLEEPING. WILL CONTINUE TO MONITOR AND ASSESS. Addendum: 03/24/20 at 0248 by KIRK ALMEIDA RN IMODIUM 2MG GIVEN PO FOR DIARRHEA RELIEF. WILL CONTINUE TO MONITOR AND ENDORSE TO AM SHIFT.
--- NOTE | 2020-03-24 05:22 | NUR ---
GPS RN NOTES: PT HAD A THIRD BM/DIARRHEA AT 0500. THIS IS THE THIRD BM IN ABOUT 6HRS. PATIENT WAS TESTED FOR C-DIFF ON 03/21/20 DUE TO DIARRHEA BUT WAS NEGATIVE. PT HAS BEEN CLEANED AND FLUID GIVEN FOR HYDRATION. PATIENT IS CURRENTLY SLEEPING. WILL CONTINUE TO MONITOR AND ENDORSE TO AM SHIFT
--- NOTE | 2020-03-24 06:03 | NUR ---
GPS RN NOTES: PT HAD A medium size BM/DIARRHEA AT 0550. PT cleaned and fluid encouraged for hydration. Imodium 2mg 1cap given PO prn as ordered. PATIENT IS currently laying on bed awake. WILL CONTINUE TO MONITOR AND ENDORSE TO AM SHIFT
[2020-03-24 06:38] VITALS: BP 111/68
[2020-03-24] MEDS: BLOOD SUGAR DIAGNOSTIC 1 EACH STRIP IN SCH ×4 (07:37→21:37)
[2020-03-24] MEDS: INSULIN REGULAR, HUMAN 100 UNIT/ML 3 ML VIAL SQ PRN ×3 (07:39→21:40)
[2020-03-24] MEDS: ATORVASTATIN 40 MG TABLET PO SCH (08:23)
[2020-03-24] MEDS: LINAGLIPTIN 5 MG TABLET PO SCH (08:23)
[2020-03-24] MEDS: AMLODIPINE BESYLATE 5 MG TABLET PO SCH (08:24)
[2020-03-24 09:52] VITALS: BP 138/75
[2020-03-24] MEDS: clonazePAM 0.5 MG TABLET PO SCH ×2 (10:00→21:45)
--- NOTE | 2020-03-24 10:03 | NUR ---
Family Contact: SW called the pts sister, Criss ([phone]), and left a voicemail stating that the SW passed the pts sisters phone number to the MD and that the SW is available to discuss this pt whenever possible.
--- NOTE | 2020-03-24 13:45 | NUR ---
Family Contact: pts sister, Criss ([phone]), called the SW and stated that she spoke with the pts mother and they would prefer that the pt is discharged to a SNF in the [place]. SW stated that she would send out referrals and then keep her informed.
[2020-03-24 16:00] VITALS: BP 100/58
--- NOTE | 2020-03-24 19:30 | NUR ---
GPS RN NOTE, RECEIVED PATIENT AWAKE AND IN BED, NO S/S OR COMPLAINTS OF PAIN AT THIS TIME. PATIENT IS DISPLAYING NO S/S OF APPARENT DISTRESS AT THIS TIME. PATIENT BREATHING IS UNLABORED WITH EQUAL RISE AND FALL OF THE CHEST. PATIENT IS ALERT AND ORIENTED X 1 -2 ON ROOM AIR WITH A SPO2 97%. PATIENT IS COMPLIANT WITH MEDICATIONS, ANXIOUS AT TIMES, CONFUSED, NEEDS REDIRECTION, AND COOPERATIVE. PATIENT DENIES SUICIDAL AND HOMICIDAL IDEATIONS AT THIS TIME. PATIENT ASSISTED WITH TURNING AND REPOSITIONING Q2HR AND PRN FOR COMFORT AND CIRCULATION. PATIENT HAS NO NEEDS AT THIS TIME. PATIENT EDUCATED ON THE USE OF THE CALL ROJAS. PATIENT BED SIDE RAILS UP X 2 FOR SAFETY. PATIENT BED IS LOCKED, LOW, WITH BED ALARM ON. WILL CONTINUE TO MONITOR THIS PATIENT Q15 MINUTES WITH THE HELP OF STAFF TO MAINTAIN SAFETY.
--- NOTE | 2020-03-24 21:30 | NUR ---
GPS RN NOTE, PERFORMED ACCU CHECK ON PATIENT WITH A BLOOD SUGAR RESULT OF 165. GAVE 3 UNITS OF REGULAR INSULIN PER SLIDING SCALE ORDERED. WILL CONTINUE TO MONITOR THIS PATIENT.
[2020-03-24] MEDS ORDERED: IV NS 0.9% 1,000 ML IV ONE (22:00)
[2020-03-25] MEDS: LOPERAMIDE HCL (2 MG CAP) 2 MG CAPSULE PO PRN (00:36)
[2020-03-25] MEDS: BLOOD SUGAR DIAGNOSTIC 1 EACH STRIP IN SCH ×4 (07:42→22:02)
[2020-03-25] MEDS: INSULIN REGULAR, HUMAN 100 UNIT/ML 3 ML VIAL SQ PRN ×4 (07:56→22:39)
[2020-03-25 07:57] LABS: BASOPHILS % (AUTO) 0.7 % (0.0-2.0); EOSINOPHILS % (AUTO) 1.8 % (0.0-6.0); HEMATOCRIT 42 % (39-51); HEMOGLOBIN 13.8 g/dL (13.5-17.5); LYMPHOCYTES # (AUTO) 1.3 /CMM (0.8-4.8); LYMPHOCYTES % (AUTO) 19.6 % (20.0-44.0); MEAN CORPUSCULAR HGB CONC 33 g/dl (31.0-36.0); MEAN CORPUSCULAR VOLUME 94 fL (80-96); MONOCYTES # (AUTO) 0.9 /CMM (0.1-1.30); MONOCYTES % (AUTO) 12.9 % (2.0-12.0); NEUTROPHILS # (AUTO) 4.4 /CMM (1.8-8.9); PLATELET COUNT (AUTO) 269 /CMM (150-450); RED BLOOD CELL COUNT(AUTO) 4.42 MIL/uL (4.5-6.0); WHITE BLOOD COUNT (AUTO) 6.7 K/uL (4.3-11.0)
[2020-03-25 08:00] VITALS: BP 118/83
[2020-03-25 08:25] LABS: ALBUMIN 3.7 g/dL (3.4-5.0); BILIRUBIN,TOTAL 1.4 mg/dL (0.2-1.0); CALCIUM, SERUM 9.5 mg/dL (8.5-10.1); CREATININE 1.1 mg/dL (0.6-1.3); MAGNESIUM 1.7 mg/dL (1.8-2.4); POTASSIUM 3.2 mmol/L (3.5-5.1); TOTAL PROTEIN, SERUM 7.1 g/dL (6.4-8.2)
[2020-03-25] MEDS: AMLODIPINE BESYLATE 5 MG TABLET PO SCH (09:00)
--- NOTE | 2020-03-25 09:00 | NUR ---
RN NOTE- PT W CONTINUED CONFUSION THOUGH BETTER AFTER RECEIVING NS IV FLUIDS, PO INTAKE BETTER, MORE INTERACTIVE AND ENGAGING. LABS RETURNED W K+ AND MAG SUPPLEMENTATION ADMINISTERED.
[2020-03-25] MEDS: LINAGLIPTIN 5 MG TABLET PO SCH (09:19)
[2020-03-25] MEDS: ATORVASTATIN 40 MG TABLET PO SCH (09:19)
[2020-03-25] MEDS ORDERED: POTASSIUM CHLORIDE 20 MEQ TAB.PRT.SR PO SCH (10:00)
[2020-03-25] MEDS: clonazePAM 0.5 MG TABLET PO SCH ×2 (10:10→21:02)
--- NOTE | 2020-03-25 10:28 | NUR ---
SNF Referral: SW faxed a SNF referral to the following two facilities listed below: [facility] with attn to Shabibr to the fax number: [phone] [facility] with attn to Nena to the fax number: [phone].
[2020-03-25] MEDS ORDERED: MAGNESIUM OXIDE 400 MG TABLET PO ONE (11:00)
--- NOTE | 2020-03-25 11:11 | NUR ---
RN NOTE/NARCOTICS WASTE - ADMINISTERED 0.25 MG KLONOPIN. WENT TO WASTE 0.25 MG WITH FRANK MACIAS FROM [facility]. WITNESSED WASTE THEN GARY WOULDN'T RECORD. CALLED AUTOMOBILE CONTRACT CLERK LUCIO. IT WOULDN'T RECORD FOR HER EITHER. PHARMACY NOTIFIED, SPOKE Kim STANTON AND TOLD TO RECORD WASTE IN NOTES AND THE PHARMACY WOULD RESOLVE ISSUE.
--- NOTE | 2020-03-25 12:06 | NUR ---
SNF Contact: Nena [phone]) from [facility] called the SW and stated that the pt was accepted to their facility.
--- NOTE | 2020-03-25 13:32 | NUR ---
RN NOTE- DR POWELL ORDERED NEURO CONSULT. I PHONED ASHLEY AT DR AMAYA OFFICE ). HE WILL BE BY TO SEE PT.
[2020-03-25 16:00] VITALS: BP 148/96
--- NOTE | 2020-03-25 16:57 | NUR ---
RN NOTE- ADMINISTERED KLONOPIN 0.5 MG . TRIED TO WASTE .25MG PER ORDERS W KEENA MED NURSE AND OMNICELL WOULDN'T RECORD WASTE. MED NURSE WITNESSED WASTE IN MEDICATION DISPOSAL CONTAINER. PHARMACY NOTIFIED
[2020-03-25] MEDS: risperiDONE 1 MG TABLET PO SCH (17:46)
[2020-03-25 19:41] VITALS: BP 134/76
--- NOTE | 2020-03-25 20:00 | NUR ---
RN NOTES: PT. BEHAVIOR UNCOOPERTIVE PARANOID , ANXIOUS ,NONDIRECTABLE , CLIMBING OUT THE BED NOT SATYING IN BED , WITH BED SIDE RAILS AND LATANYA CHAIR KICKING BY SELF AND REFUSING SKIN ASSESSMENT , NOTED WITH SELF INFLECTED SKIN DISCOLORATIONS, WITH CONTINUITY OF CARE.
--- NOTE | 2020-03-25 22:00 | NUR ---
GPS RN NOTE, PERFORMED ACCU CHECK ON PATIENT WITH A BLOOD SUGAR RESULT OF 141. GAVE 2 UNITS OF REGULAR INSULIN PER SLIDING SCALE ORDERED. WILL CONTINUE TO MONITOR THIS PATIENT.
[2020-03-26] MEDS: TEMAZEPAM 7.5 MG CAPSULE PO PRN (00:21)
--- NOTE | 2020-03-26 00:21 | NUR ---
RN NOTES: INSOMNIA PT. UNABLE TO SLEEP RESTORIL 15 MG PO PRN GIVEN ,WILL CONTINUE TO MONITOR.
[2020-03-26] MEDS: risperiDONE 1 MG TABLET PO SCH ×2 (05:21→16:43)
--- NOTE | 2020-03-26 06:51 | NUR ---
RN NOTES: PT. BEHAVIOR UNCOOPERTIVE PARANOID , ANXIOUS ,NONDIRECTABLE , CLIMBING OUT THE BED NOT SATYING IN BED , WITH BED SIDE RAILS AND LATANYA CHAIR KICKING BY SELF AND REFUSING SKIN ASSESSMENT , NOTED WITH SELF INFLECTED SKIN DISCOLORATIONS, BRUISES ENDORSE TO AM NURSE WITH CONTINUITY OF CARE.
--- NOTE | 2020-03-26 07:00 | NUR ---
RN OPENING NOTE PT IS IN LATANYA CHAIR WITH MULTIPLE ATTEMPTS TO GET OUT. A/O X1 TO NAME. NO COMPLAINTS OF PAIN. PT SHOWS NO SIGNS OF RESPIRATORY DISTRESS OR SOB. PT IS ANXIOUS AND NEEDS FREQUENT REDIRECTION. PT IS ABLE TO ASSIST WITH REPOSITION AND LINEN CHANGES. SAFETY MEASURES IMPLEMENTED. WILL CONTINUE TO MONITOR.
[2020-03-26] MEDS: BLOOD SUGAR DIAGNOSTIC 1 EACH STRIP IN SCH ×4 (07:16→21:13)
[2020-03-26] MEDS: INSULIN REGULAR, HUMAN 100 UNIT/ML 3 ML VIAL SQ PRN ×2 (07:19→17:13)
[2020-03-26 08:00] VITALS: BP 126/79
[2020-03-26] MEDS: ATORVASTATIN 40 MG TABLET PO SCH (10:49)
[2020-03-26] MEDS: LINAGLIPTIN 5 MG TABLET PO SCH (10:50)
[2020-03-26] MEDS: AMLODIPINE BESYLATE 5 MG TABLET PO SCH (10:50)
[2020-03-26] MEDS: clonazePAM 0.5 MG TABLET PO SCH ×2 (10:50→21:09)
[2020-03-26 16:00] VITALS: BP 131/85
--- NOTE | 2020-03-26 17:45 | NUR ---
RN CLOSING NOTE PT IS IN THE CHAIR. MULTIPLE ATTEMPTS TO GET OUT. PT LISTENS TO NURSES INSTRUCTIONS TO STOP. ROUTINE MEDS ARE GIVEN. SELF-INFLICTED BRUISING NOTED. EDUCATED NIGHT NURSE ON BRUISING.
[2020-03-26 20:00] VITALS: BP 145/68
--- NOTE | 2020-03-26 20:00 | NUR ---
GPS-RN NOTES: PATIENT NOTED WITH DRY ABRASION ON HIS RIGHT ADAMS. INITIAL TREATMENT RENDERED. WOUND CONSULT ORDERED. WILL CONTINUE TO MONITOR FOR ANY CHANGES EVERY SHIFT AND PRN.
[2020-03-27] MEDS: LORAZEPAM 0.5 MG TABLET PO PRN ×2 (03:06→11:25)
[2020-03-27] MEDS: risperiDONE 1 MG TABLET PO SCH ×2 (05:42→17:00)
[2020-03-27] MEDS: BLOOD SUGAR DIAGNOSTIC 1 EACH STRIP IN SCH ×5 (07:30→21:43)
[2020-03-27 08:00] VITALS: BP 136/94
[2020-03-27] MEDS: INSULIN REGULAR, HUMAN 100 UNIT/ML 3 ML VIAL SQ PRN ×4 (09:17→21:35)
[2020-03-27] MEDS: LINAGLIPTIN 5 MG TABLET PO SCH (09:35)
[2020-03-27] MEDS: ATORVASTATIN 40 MG TABLET PO SCH (09:35)
[2020-03-27] MEDS: AMLODIPINE BESYLATE 5 MG TABLET PO SCH (09:35)
[2020-03-27] MEDS: clonazePAM 0.5 MG TABLET PO SCH ×2 (09:36→22:00)
[2020-03-27 16:00] VITALS: BP 142/95
[2020-03-27 20:00] VITALS: BP 115/86
[2020-03-28] MEDS: risperiDONE 1 MG TABLET PO SCH ×2 (05:00→05:09)
[2020-03-28] MEDS: INSULIN REGULAR, HUMAN 100 UNIT/ML 3 ML VIAL SQ PRN (07:08)
--- NOTE | 2020-03-28 07:09 | NUR ---
NURSES NOTES: PATIENT HAS NOT REALLY BEEN EATING THIS SHIFT. INSULIN COVERAGE NOT GIVEN.
[2020-03-28] MEDS: BLOOD SUGAR DIAGNOSTIC 1 EACH STRIP IN SCH (07:37)
[2020-03-28 08:00] VITALS: BP 118/75
--- NOTE | 2020-03-28 08:30 | NUR ---
RN NOTE- 0755 INTO BEDSIDE TO CHECK ON PT AND OBTAIN VS. NOTED PT W DYSPNEA AND SOMNOLENCE. SATURATION NOTED TO BE 78% RA. BP- 118/75, APICAL HR- 99, RR- 26, TEMP- 97.9. PUT PT ON O2 4L VIA NC. CALLED RAPID RESPONSE AT 0800. ACCU CHECK BS- 185. CHECK OF MED ADMINISTRATION SHOWED NO RX SINCE PREVIOUS DAY. RAPID RESPONSE TEAM AT BEDSIDE. ABGS DRAWN. NON REBREATHER APPLIED. O2 SATS STEADILY CLIMBED TOPPING AT 92%. ABGS - PO2 47*, PH 7.43, CO2- 39, BICARB 26. ORDERED TO TRANSFER ICU BED 253. DR VERNON KEITA HOLD AND PSYCHE MEDS AT THIS TIME. PT TRANSFERRED BY THIS RN AND STAFF. REPORT GIVEN TO GHADA AT ICU.
[2020-03-28 08:37] LABS: ABG BASE EXCESS 1.8 mmol/L; ABG OXYGEN SATURATION 84.9 % (92.0-98.5); ABG PCO2 39.5 mmHg (35.0-45.0); ABG PH 7.436 (7.350-7.450); ABG PO2 47.4 mmHg (75.0-100.0); AaDO2 626.1 mmHg; COHb 0.5 % (0.5-1.5); O2Hb 84.5 % (94.0-97.0); SITE, ABG Right Radial; VENT MODE, BG NRB 15L
[2020-03-28] MEDS ORDERED: ACET-868 PO (10:04)
[2020-03-28] MEDS ORDERED: DEXT50DI8 IV (10:04)
[2020-03-28] MEDS ORDERED: ALLA266C2 TP (10:04)
[2020-03-28] MEDS ORDERED: BLOO-668 IN (10:04)
[2020-03-28] MEDS ORDERED: MAG30ORA PO (10:04)
[2020-03-28] MEDS ORDERED: LOPE2CAP PO (10:04)
[2020-03-28] MEDS ORDERED: MAGN400O6 PO (10:04)
[2020-03-28] MEDS ORDERED: INSU100V3 SQ (10:04)
--- NOTE | 2020-03-28 11:28 | NUR ---
SW Transfer: Patient will be transferred to tele due to rapid response. Dr. Brooks was called and hold will be discontinued. Pts sister, Criss ([phone]), is involved in the treatment and she decided that she wants the pt to be discharged to a SNF in the [place]- pt was already accepted to [facility] ([phone]) and [facility] ([phone]) is reviewing clinical. Patient has a licensed social worker Sharron ([phone]) who follows patient and would want to know patients status/update.
--- NOTE | 2020-03-28 16:07 | NUR ---
RN NOTE- ATTEMPTED TO CONTACT PTS SISTER LOWELL ([phone]). TO NOTIFY OF TRANSFER TO ICU AND CHANGE OF CONDITION. MAIL BOX FULL. UNABLE TO LEAVE MESSAGE
== END 2020-03-28 08:30 | DRG 885 ==
LOC: ER 04:58 → TRANSITION 09:27 → GPS 16:00
PROVIDERS: ADMIT Psychiatry & Neurology Psychiatry
DX: F25.1 Schizoaffective disorder, depressive type (principal); C95.91 Leukemia, unspecified, in remission; I10 Essential (primary) hypertension; E11.9 Type 2 diabetes mellitus without complications; Z85.46 Personal history of malignant neoplasm of prostate; E78.5 Hyperlipidemia, unspecified; Z79.899 Other long term (current) drug therapy; F29 Unspecified psychosis not due to a substance or known physiological condition; F31.9 Bipolar disorder, unspecified; Z91.5 Personal history of self-harm
CPT/HCPCS: 36415; 36600; 70450-TC; 71045-TC; 80048-TC; 80053-TC; 80061-TC; 80076-TC; 80164-TC; 81001; 82962-TC; 83735-TC; 84075-TC; 84484-TC; 85025-TC; 85730-TC; 87081-TC; 97116-TC; 97530-TC; C9803; G0480; J1815; J7030

== ENCOUNTER 2020-03-28 09:15 | Inpatient (IN) | payer MEDICARE, OTHER ==
[~2020-03-28] VITALS: Ht 180.3 cm; Wt 64.6 kg
[2020-03-28] VITALS (53 sets, daily range): BP systolic 45–159; BP diastolic 27–93
--- NOTE | 2020-03-28 08:30 | NUR ---
RN ADMITTING NOTES RECIEVED PATIENT FROM GPS FLOOR, DUE RECENT RAPID RESPOND CALL DUE PT POSSIBLE ASPIRATION AND DECREASED LOC AND SPO2, RAPID RESPONSE WAS CALLED @0800, BS 185 BP 118/75, TEMP 97, HR 99, PATIENT VS STABLE AT THIS MOMENT, ON NON-REBREATHER MASK, SPO2 IS 95% WILL CONT TO MONITOR
[~2020-03-28 09:15] MED LIST changes: +ATOR40TA PO; -BENZ2TAB7 PO; -DIPH25CA83 PO; -DIVA500T2 PO; -HALO10TA13 PO; +LINA5TAB PO
--- NOTE | 2020-03-28 09:45 | NUR ---
RN NOTE PATIENT DEVELOPS PERIORBITAL ECCHYMOSIS RAPIDLY, CONTACTED HOSPITALIST FOR THE ORDERS, CONT TO MONITOR CLOSELY
[2020-03-28] MEDS ORDERED: BLOO-668 IN (10:04)
[2020-03-28] MEDS ORDERED: ALLA266C2 TP (10:04)
[2020-03-28] MEDS ORDERED: DEXT50DI8 IV (10:04)
[2020-03-28] MEDS ORDERED: MAGN400O6 PO (10:04)
[2020-03-28] MEDS ORDERED: ACET-868 PO (10:04)
[2020-03-28] MEDS ORDERED: INSU100V3 SQ (10:04)
[2020-03-28] MEDS ORDERED: LOPE2CAP PO (10:04)
[2020-03-28] MEDS ORDERED: MAG30ORA PO (10:04)
--- NOTE | 2020-03-28 10:40 | NUR ---
RT PATIENT ORALLY INTUBATED BY ANTHONY PHELPS WITH A 8.0 ETT SECURED AT 24CM AT THE TOP LIP. BILAT CHEST RISE NOTED. PLACED ON VENT WITH ORDERED SETTINGS PER DR MORENO. VENT ALARMS CHECKED + AUDIBLE. CUFF PRESSURE TOW BAR DRIVER. [facility] BAG [facility].VENT PLUGGED INTO RED OUTLET. Addendum: 03/28/20 at 1501 by ANDRESSA POLLOCK RT Amended: Links added.
--- NOTE | 2020-03-28 10:50 | NUR ---
patient is intubated at 1045
--- NOTE | 2020-03-28 11:00 | NUR ---
RT INTUBATE PT 7.5 24CM AT LIP SECURED PENDING CHEST XRAY PLACED ON [facility] VENT AC /VC+ 18 500 +8 100% Addendum: 03/28/20 at 1101 by BELINDA CHRISTOPHER RT Amended: Links added. Addendum: 03/28/20 at 1511 by BELINDA CHRISTOPHER RT RT ETT 8.0
[2020-03-28] MEDS: IPRATROPIUM NEB FS 0.5 MG/2.5 ML AMPUL.NEB NEB SCH ×4 (11:08→23:15)
[2020-03-28] MEDS: ALBUTEROL HALF STRENGTH 1.25 MG/3 ML VIAL.NEB NEB SCH ×4 (11:08→23:15)
[2020-03-28] MEDS ORDERED: PIPERACILLIN /TAZOBACTAM 3.375 G in IV D5W 50 ML IV ONE (12:00)
[2020-03-28] MEDS: PHENYLEPHRINE 50 MG in IV NS 0.9% 245 ML IV PRN ×2 (12:06→21:30)
[2020-03-28] MEDS ORDERED: ETOMIDATE 2 MG/ML VIAL IV ONE (12:07)
[2020-03-28] MEDS ORDERED: ROCURONIUM BROMIDE 50 MG/5 ML IV ONE (12:07)
[2020-03-28] MEDS: methylPREDNISolone SOD SUCC 40 MG/ML VIAL IV SCH ×2 (12:39→18:23)
[2020-03-28 12:59] LABS: ABG BASE EXCESS -0.8 mmol/L; ABG OXYGEN SATURATION 93.4 % (92.0-98.5); ABG PCO2 42.5 mmHg (35.0-45.0); ABG PH 7.377 (7.350-7.450); AaDO2 600.5 mmHg; COHb 0.5 % (0.5-1.5); MetHb 0.3 % (0.0-1.5); O2Hb 92.7 % (94.0-97.0); SITE, ABG Right Radial
--- NOTE | 2020-03-28 13:46 | NUR ---
SW Transfer Note from [facility]: Patient will be transferred to tele due to rapid response. Dr. Brooks was called and hold will be discontinued. Pts sister, Criss ([phone]), is involved in the treatment and she decided that she wants the pt to be discharged to a SNF in the [place]- pt was already accepted to [facility] ([phone]) and [facility] ([phone]) is reviewing clinical. Patient has a dialysis social worker Sharron ([phone]) who follows patient and would want to know patients status/update.
[2020-03-28] MEDS ORDERED: IV NS 0.9% 500 ML IV ONE (16:00)
--- NOTE | 2020-03-28 16:20 | NUR ---
Patient is going for CT scan of the head, RT at bed site, will transfer according ACLS protocol
--- NOTE | 2020-03-28 16:50 | NUR ---
Back to room, conected to monitor , tolerated well, VS stable, SPO2 is 98%
[2020-03-28] MEDS: IV D5/ 0.9% NACL 1,000 ML IV PRN (17:15)
[2020-03-28] MEDS ORDERED: DEXTROSE 50%-WATER 50 ML DISP.SYRIN IV PRN ×2 (17:30)
[2020-03-28] MEDS ORDERED: MAG HYDROX/AL HYDROX/SIMETH 30 ML UDC PO PRN (17:30)
[2020-03-28] MEDS ORDERED: *INSULIN REGULAR(HUMULIN R)HUM 100 UNIT/ML VIAL SQ PRN (17:30)
[2020-03-28] MEDS ORDERED: INSULIN REGULAR, HUMAN 100 UNIT/ML 3 ML VIAL SQ PRN (17:30)
[2020-03-28] MEDS ORDERED: MAGNESIUM HYDROXIDE 30 ML UDC PO PRN (17:30)
[2020-03-28] MEDS ORDERED: Z GUARD REMEDY 2 OZ OINT TP PRN (17:30)
[2020-03-28] MEDS ORDERED: BLOOD SUGAR DIAGNOSTIC 1 EACH STRIP VI SCH (17:30)
[2020-03-28] MEDS ORDERED: ONDANSETRON HCL/PF 4 MG/2 ML VIAL IVP PRN (17:30)
[2020-03-28] MEDS: BLOOD SUGAR DIAGNOSTIC 1 EACH STRIP IN SCH ×2 (18:17→23:16)
[2020-03-28] MEDS: PROPOFOL 10MG/ML 50ML 50 ML IV PRN (18:18)
[2020-03-28] MEDS: INSULIN REGULAR, HUMAN 100 UNIT/ML 3 ML VIAL SQ PRN ×2 (18:23→23:18)
--- NOTE | 2020-03-28 19:55 | NUR ---
NATURAL RESOURCES ENGINEER OPENING NOTES: Rec'd pt in bed, intubated and sedated 8.0/24cm at the lip, on mechanical ventilation. Tolerating vent settings well. No SOB or resp distress noted. SR on tele monitor. IV sites on SHAYLEE midline, LFA #18 and right wrist patent and flushed w/ Diprivan infusing at 25mcg and Lewis at 1.4mcg. Will titrate per protocol. Manjarrez catheter in place patent and draining urine via gravity. Safety measures in place. Will continue to monitor.
[2020-03-28] MEDS: PIPERACILLIN /TAZOBACTAM 3.375 G in IV D5W 100 ML IV SCH (20:04)
--- NOTE | 2020-03-28 21:13 | NUR ---
STEAM SHOVEL OILER NOTE: RT titrated fio2 down to 80%. Will continue to monitor.
[2020-03-29] VITALS (87 sets, daily range): BP systolic 74–158; BP diastolic 44–105
[2020-03-29] MEDS: PROPOFOL 10MG/ML 50ML 50 ML IV PRN ×6 (00:33→20:04)
[2020-03-29] MEDS: methylPREDNISolone SOD SUCC 40 MG/ML VIAL IV SCH ×3 (02:00→17:49)
[2020-03-29] MEDS: IPRATROPIUM NEB FS 0.5 MG/2.5 ML AMPUL.NEB NEB SCH ×6 (03:04→23:56)
[2020-03-29] MEDS: ALBUTEROL HALF STRENGTH 1.25 MG/3 ML VIAL.NEB NEB SCH ×6 (03:04→23:56)
[2020-03-29] MEDS: PIPERACILLIN /TAZOBACTAM 3.375 G in IV D5W 100 ML IV SCH ×3 (04:05→20:00)
[2020-03-29 04:28] LABS: CREATININE 1.6 mg/dL (0.6-1.3); MAGNESIUM 1.8 mg/dL (1.8-2.4); PHOSPHORUS 4.1 mg/dL (2.5-4.9); POTASSIUM 3.7 mmol/L (3.5-5.1)
[2020-03-29 04:32] LABS: BASOPHILS % (AUTO) 0.1 % (0.0-2.0); HEMATOCRIT 42 % (39-51); LYMPHOCYTES # (AUTO) 0.5 /CMM (0.8-4.8); LYMPHOCYTES % (AUTO) 4.6 % (20.0-44.0); MEAN CORPUSCULAR HGB CONC 34 g/dl (31.0-36.0); MEAN CORPUSCULAR VOLUME 95 fL (80-96); MONOCYTES # (AUTO) 0.5 /CMM (0.1-1.30); MONOCYTES % (AUTO) 4.7 % (2.0-12.0); NEUTROPHILS # (AUTO) 9.9 /CMM (1.8-8.9); NEUTROPHILS % (AUTO) 90.6 % (43.0-81.0); PLATELET COUNT (AUTO) 204 /CMM (150-450); RED BLOOD CELL COUNT(AUTO) 4.42 MIL/uL (4.5-6.0); WHITE BLOOD COUNT (AUTO) 10.9 K/uL (4.3-11.0)
[2020-03-29] MEDS: BLOOD SUGAR DIAGNOSTIC 1 EACH STRIP IN SCH ×3 (05:06→23:20)
[2020-03-29] MEDS: INSULIN REGULAR, HUMAN 100 UNIT/ML 3 ML VIAL SQ PRN ×2 (05:08→23:22)
--- NOTE | 2020-03-29 05:22 | NUR ---
FOUNDRY TECHNICIAN NOTE: RT titrated fio2 down to 60%. Will continue to monitor.
[2020-03-29] MEDS: PHENYLEPHRINE 50 MG in IV NS 0.9% 245 ML IV PRN ×2 (06:44→16:14)
--- NOTE | 2020-03-29 06:46 | NUR ---
GRAVURE PRINTING MACHINIST NOTE: Rec'd call from Ann Marie from [facility]. Pt's picc line tip is projected at level of the mid right subclavian vein. They reccomend to readjust. Will endorse to oncoming shift.
--- NOTE | 2020-03-29 07:30 | NUR ---
RN OPENING NOTE Patient present in bed, sedated, SPO2 is 99%, tolerating mech vent settings well, resp even and unlabored, sedated on Diprivan @25 mcg/kg.min, relaxed and calm, NSR on tele-monitor, Manjarrez cath in place,patent and intact, IV line is working, patent and flushed well, NPO status noted, OGT in place, placement checked with ascultation. Safety measures in place, HOB elevated, bed alarm is ON, bed locked in lowest position, will cont to monitor
[2020-03-29 08:53] LABS: ABG BASE EXCESS -2.4 mmol/L; ABG OXYGEN SATURATION 97.9 % (92.0-98.5); ABG PCO2 38.6 mmHg (35.0-45.0); ABG PO2 112.6 mmHg (75.0-100.0); AaDO2 272.7 mmHg; COHb 0.5 % (0.5-1.5); O2Hb 97.4 % (94.0-97.0); PEEP,BG 5 cm H2O; SITE, ABG Right Radial; VENT MODE, BG AC/PRVC 25; VT, ABG 500 mL
--- NOTE | 2020-03-29 09:02 | NUR ---
WOUND CARE CONSULT: PT PRESENTS WITH LEFT BUTTOCK INCONTINENCE ASSOCIATED SKIN DAMAGE, RT ARM DRY ABRASION AND RT LOWER LEG DRY ABRASION, DISCOLORATION AROUND BOTH EYES, ALL PRESENT ON ADMISSION. RECOMMENDATIONS MADE FOR SKIN PROTECTION. DISCUSSED WITH NURSING STAFF. PT IS ON [facility] LOW AIRLOSS BED. IN AGREEMENT WITH PLAN OF CARE. Addendum: 03/29/20 at 0904 by JUSTIN BARR WNDNU Amended: Links added.
[2020-03-29] MEDS ORDERED: *INSULIN REGULAR(HUMULIN R)HUM 100 UNIT/ML VIAL SQ PRN (09:30)
[2020-03-29] MEDS ORDERED: DEXTROSE 50%-WATER 50 ML DISP.SYRIN IV PRN ×2 (09:30→14:30)
[2020-03-29] MEDS ORDERED: INSULIN REGULAR, HUMAN 100 UNIT/ML 3 ML VIAL SQ PRN (09:30)
[2020-03-29] MEDS ORDERED: BLOOD SUGAR DIAGNOSTIC 1 EACH STRIP VI SCH (12:00)
--- NOTE | 2020-03-29 14:30 | NUR ---
Patient experiencing seizure, will contatc MD for order
[2020-03-29] MEDS: LORAZEPAM INJ 2 MG/ML VIAL IV PRN (14:49)
--- NOTE | 2020-03-29 16:00 | NUR ---
Patient's sister Criss Lynn called, and informed about DNR status
[2020-03-29] MEDS: IV D5/ 0.9% NACL 1,000 ML IV PRN (17:26)
--- NOTE | 2020-03-29 18:56 | NUR ---
RN CLOSING NOTES PATIENT REMAINS IN BED, TOLERATING SETIGS AND DRIPS WELL, CLEANED AND REPOSITIONED, WOUND CARE DONE, MEDICATIONS GIVEN, SAFETY MEASURES IN PLACE, HOB ELEVATED, BED IS LOCCKED , IN LOWEST POSITION, WILL ENDORSE TO PM SHIFT RN FOR AVE
--- NOTE | 2020-03-29 19:10 | NUR ---
RATE INSERTER OPENING NOTES: Rec'd pt in bed, intubated and sedated 8.0/24cm at the lip, on mechanical ventilation. Tolerating vent settings well. No SOB or resp distress noted. SR on tele monitor. IV sites on SHAYLEE midline, LFA #18 and right wrist patent and flushed w/ Diprivan infusing at 25mcg and Lewis at 1.3mcg. Will titrate per protocol. Manjarrez catheter in place patent and draining urine via gravity. Safety measures in place. Will continue to monitor.
--- NOTE | 2020-03-29 20:24 | NUR ---
RECEIVED PT INTUBATED 8.0 ETT SECURED AT 24CM AT THE LIP. VENT SETTINGS AC 18, 500, 60%, +5. VENT ALARMS SET AND AUDIBLE. VENT PLUGGED INTO RED OUTLET. CONTINUE TO MONITOR. Addendum: 03/29/20 at 2025 by AYAD GARCIA RT Amended: Links added.
--- NOTE | 2020-03-29 21:03 | NUR ---
DIVISION OPERATIONS SPECIALIST NOTE: Urine collected and sent to lab.
[2020-03-29 21:29] LABS: BILIRUBIN,URINE NEGATIVE (NEGATIVE); COLOR,URINE YELLOW (YELLOW); LEUKOCYTE ESTERASE ,URINE NEGATIVE (NEGATIVE); NITRITE, URINE NEGATIVE (NEGATIVE); PROTEIN,URINE NEGATIVE (NEGATIVE); UGLUCOSE NEGATIVE (NEGATIVE); UROBILINOGEN,URINE 0.2 EU/dL (0.2)
[2020-03-29 21:56] LABS: BACTERIA,URINE Few /HPF (None Seen); SQUAMOUS EPITHELIAL CELL,UR Few /HPF (None Seen); URIC ACID CRYSTALS,URINE Many /HPF (None Seen); WBC,URINE 0-2 /HPF (0-3)
[2020-03-29 22:03] LABS: CREATININE, URINE 79.6 MG/DL (30.0-125.0); URINE TOTAL PROTEIN 40.3 mg/dL (0-11.9)
[2020-03-29 22:41] LABS: EOSINOPHIL,URINE None Seen
[2020-03-30] VITALS (96 sets, daily range): BP systolic 81–173; BP diastolic 55–107
[2020-03-30] MEDS: PROPOFOL 10MG/ML 50ML 50 ML IV PRN ×5 (00:31→23:13)
[2020-03-30] MEDS: LORAZEPAM INJ 2 MG/ML VIAL IV PRN (01:14)
--- NOTE | 2020-03-30 01:16 | NUR ---
DECORATOR STORE NOTE: Pt. noted to have generalized seizure lasting about 40 seconds. Ativan 1mg PRN given as ordered.
[2020-03-30] MEDS: methylPREDNISolone SOD SUCC 40 MG/ML VIAL IV SCH ×3 (02:24→18:36)
[2020-03-30] MEDS: PIPERACILLIN /TAZOBACTAM 3.375 G in IV D5W 100 ML IV SCH ×3 (03:07→20:00)
[2020-03-30] MEDS: IPRATROPIUM NEB FS 0.5 MG/2.5 ML AMPUL.NEB NEB SCH ×6 (03:10→23:19)
[2020-03-30] MEDS: ALBUTEROL HALF STRENGTH 1.25 MG/3 ML VIAL.NEB NEB SCH ×6 (03:10→23:19)
[2020-03-30] MEDS: IV NS 0.9% 250 ML IV PRN (04:14)
[2020-03-30 04:32] LABS: BASOPHILS % (AUTO) 0.1 % (0.0-2.0); HEMATOCRIT 38 % (39-51); HEMOGLOBIN 12.8 g/dL (13.5-17.5); LYMPHOCYTES # (AUTO) 0.8 /CMM (0.8-4.8); LYMPHOCYTES % (AUTO) 4.1 % (20.0-44.0); MEAN CORPUSCULAR HGB CONC 34 g/dl (31.0-36.0); MEAN CORPUSCULAR VOLUME 94 fL (80-96); MONOCYTES # (AUTO) 0.9 /CMM (0.1-1.30); MONOCYTES % (AUTO) 4.7 % (2.0-12.0); NEUTROPHILS # (AUTO) 17.1 /CMM (1.8-8.9); NEUTROPHILS % (AUTO) 91.1 % (43.0-81.0); PLATELET COUNT (AUTO) 185 /CMM (150-450); RED BLOOD CELL COUNT(AUTO) 4.05 MIL/uL (4.5-6.0); WHITE BLOOD COUNT (AUTO) 18.8 K/uL (4.3-11.0)
[2020-03-30 04:49] LABS: ALBUMIN 2.3 g/dL (3.4-5.0); BILIRUBIN,TOTAL 0.7 mg/dL (0.2-1.0); CALCIUM, SERUM 9.2 mg/dL (8.5-10.1); CREATININE 1.7 mg/dL (0.6-1.3); PHOSPHORUS 4.1 mg/dL (2.5-4.9); POTASSIUM 4.2 mmol/L (3.5-5.1); TOTAL PROTEIN, SERUM 5.5 g/dL (6.4-8.2)
[2020-03-30] MEDS: BLOOD SUGAR DIAGNOSTIC 1 EACH STRIP IN SCH ×3 (05:14→18:36)
[2020-03-30] MEDS: INSULIN REGULAR, HUMAN 100 UNIT/ML 3 ML VIAL SQ PRN ×3 (05:15→18:39)
--- NOTE | 2020-03-30 05:45 | NUR ---
THERAPIST OCCUPATIONAL NOTE: RT titrated fio2 down to 50% will continue to monitor.
[2020-03-30] MEDS: PHENYLEPHRINE 50 MG in IV NS 0.9% 245 ML IV PRN (07:01)
--- NOTE | 2020-03-30 08:00 | NUR ---
rn otes patient sedated at this time , per Meeting Planner Dr Rojo get TO order stop sedation for trying to extubated, titrated Diprivan per protocol. will monitoring.
[2020-03-30] MEDS: IV D5/ 0.9% NACL 1,000 ML IV PRN ×2 (09:50→20:00)
--- NOTE | 2020-03-30 12:00 | NUR ---
RN NOTES BS-92 MG/DL, MONITORING LABS, ASSIST TURN AND REPOSTION Q 2 HR.
--- NOTE | 2020-03-30 12:49 | NUR ---
RN NOTES BS-221 MG/DL COVERAGE GIVEN, V/S WNL. PATIENT STILL OVER SEDATED AFTER STOP DIPRIVAN, WILL MONITORING.
--- NOTE | 2020-03-30 18:35 | NUR ---
rn notes pm care done, patient awake at this time and started breath by self, mild agitated, started diprivan 5mcg/kg/hr, and titrated up per protocol, also infusing Levophed 0.4 mcg/kg/hr, and D5ns at 100 ml/hr intact on right upper picc line. ogt intact, flashed, keep hob 45 degree all the time. oconnell draining by gravity. assist turn and reposition q2 hr, call light within to reach. endorsed oncoming nurse follow plan of care.
--- NOTE | 2020-03-30 19:30 | NUR ---
RN OPENING NOTES RECEIVED PT IN BED. SEDATED. DNR NOTED. ORALLY INTUBATED ON [facility] VENTILATION SETTINGS AC 40 TV 500 FIO2 40% AND PEEP OF 5, TOLERATING WELL. O2 SATURATION OF 97% PT ON TELE MONITOR PRESENTS WITH NSR HR OF 94 AT THIS TIME. PT HAS OGT CLAMPED, AUSCULTATED TO CONFIRM PLACEMENT, RESIDUAL OF 40CC NOTED, THIN BROWNISH IN COLOR. IV SITES FLUSHED ASEPTICALLY, PT ON DIP AT 3O MCG AND MARLYN AT 0.4, BP WNL AT THIS TIME. WILL TITRATE ACCORDING TO PROTOCOL ORDER. IVF D5NS @100ML/HR. PT IS AFEBRILE. VS STABLE AT THIS TIME. SOFT SLICK WRIST RESTRAINTS ON, SKIN AND CIRCULATION CHECKS DONE. SAFETY MEASURES IN PLACE. HOB ELEVATED. SIDE RAILS UP X 2, BED IS LOCKED IN LOWEST POSITION WITH BED ALARM ON. WILL CONT TO MONITOR. Addendum: 03/30/20 at 2121 by SILVINO MOHAN RN PT HAS REYES CATH DRAINING TO GRAVITY
[2020-03-30] MEDS: MUPIROCIN OINT 2% 22 GM TUBE NS SCH (20:01)
[2020-03-31] VITALS (81 sets, daily range): BP systolic 105–149; BP diastolic 58–97
[2020-03-31] MEDS: BLOOD SUGAR DIAGNOSTIC 1 EACH STRIP IN SCH ×4 (00:04→19:08)
[2020-03-31] MEDS: INSULIN REGULAR, HUMAN 100 UNIT/ML 3 ML VIAL SQ PRN ×4 (00:07→19:09)
[2020-03-31] MEDS: methylPREDNISolone SOD SUCC 40 MG/ML VIAL IV SCH ×2 (02:07→09:59)
[2020-03-31] MEDS: PHENYLEPHRINE 50 MG in IV NS 0.9% 245 ML IV PRN (02:19)
[2020-03-31] MEDS: PROPOFOL 10MG/ML 50ML 50 ML IV PRN ×2 (03:13→06:54)
[2020-03-31] MEDS: ALBUTEROL HALF STRENGTH 1.25 MG/3 ML VIAL.NEB NEB SCH ×6 (03:19→23:17)
[2020-03-31] MEDS: IPRATROPIUM NEB FS 0.5 MG/2.5 ML AMPUL.NEB NEB SCH ×6 (03:19→23:17)
[2020-03-31] MEDS: PIPERACILLIN /TAZOBACTAM 3.375 G in IV D5W 100 ML IV SCH ×3 (04:01→20:04)
[2020-03-31 04:32] LABS: BASOPHILS % (AUTO) 0.1 % (0.0-2.0); HEMATOCRIT 34 % (39-51); HEMOGLOBIN 11.3 g/dL (13.5-17.5); LYMPHOCYTES # (AUTO) 0.7 /CMM (0.8-4.8); LYMPHOCYTES % (AUTO) 5.2 % (20.0-44.0); MEAN CORPUSCULAR HGB CONC 33 g/dl (31.0-36.0); MEAN CORPUSCULAR VOLUME 94 fL (80-96); MONOCYTES # (AUTO) 0.5 /CMM (0.1-1.30); NEUTROPHILS # (AUTO) 12.4 /CMM (1.8-8.9); NEUTROPHILS % (AUTO) 90.7 % (43.0-81.0); PLATELET COUNT (AUTO) 181 /CMM (150-450); RED BLOOD CELL COUNT(AUTO) 3.62 MIL/uL (4.5-6.0); WHITE BLOOD COUNT (AUTO) 13.7 K/uL (4.3-11.0)
[2020-03-31] MEDS: IV D5/ 0.9% NACL 1,000 ML IV PRN ×2 (04:40→16:01)
[2020-03-31 04:51] LABS: CALCIUM, SERUM 8.9 mg/dL (8.5-10.1); CREATININE 1.2 mg/dL (0.6-1.3); POTASSIUM 3.9 mmol/L (3.5-5.1)
--- NOTE | 2020-03-31 07:08 | NUR ---
RN CLOSING NOTES NO SIGNIFCANT CHANGES, ACUTE CHANGES NOTED. PT STILL ON ORDERED VENT SETTINGS. VSS. NO RESP DISTRESS OR SOB. PT SATURATION 99% AT THIS TIME. BED BATH DONE. NO BM. WOUND TX DONE ORDERED. SAFETY MEASURES IN PLACE. HOB ELEVATED AT ALL TIMES, SIDE RAILS UP X3. BED LOCKED IN LOWEST POSITION WILL ENDORSE TO AM NURSE FOR CONTINUATION OF CARE. Addendum: 03/31/20 at 0716 by SILVINO MOHAN RN DIP AT 30MCG MARLYN OFF AT 0500
--- NOTE | 2020-03-31 08:00 | NUR ---
rn notes received patient on sedated Diprivan 30mcg/kg/hr, and D5NS at 100 ml/hr on right midline infusing well, due medication administered, patient has no acute respiratory distress, assist turn and reposition q 2hr, Manjarrez draining light yellow output, safety measure maintained. will monitoring.
[2020-03-31 08:07] LABS: *SPE A/G RATIO 0.8 (0.7-1.7); *SPE ALBUMIN 2.2 g/dL (2.9-4.4); *SPE ALPHA-1-GLOBULIN 0.5 g/dL (0.0-0.4); *SPE ALPHA-2-GLOBULIN 0.7 g/dL (0.4-1.0); *SPE BETA GLOBULIN 0.6 g/dL (0.7-1.3); *SPE GLOBULIN, TOTAL 2.7 g/dL (2.2-3.9); *SPE M-SPIKE Not Observed g/dL (Not Observed); *SPEGAMMA GLOBULIN 0.9 g/dL (0.4-1.8); PTH, INTACT 52 pg/mL (15-65)
--- NOTE | 2020-03-31 08:25 | NUR ---
RN NOTES PER REPAIR WELDER DR MROENO TO ORDER TITRATED SEDATION DIPRIVAN DOWN, ORDER TAKEN AND CARRIED OUT.
[2020-03-31] MEDS: MUPIROCIN OINT 2% 22 GM TUBE NS SCH ×2 (09:35→20:45)
[2020-03-31] MEDS: HYDROCORTISONE SOD SUCCINATE 100 MG/2 ML VIAL IV SCH ×2 (13:05→20:44)
--- NOTE | 2020-03-31 17:00 | NUR ---
rn notes EEG DONE , BS-253 MG/DL COVERAGE GIVEN.
--- NOTE | 2020-03-31 18:30 | NUR ---
RN NOTES PATIENT STILL DEEP SEDATED, NO ACUTE RESPIRATORY DISTRESS. INFUSING D5NS AT 100 ML/HR ON RIGHT MIDLINE. REYES DRAINING LESS OUTPUT. PATIENT DNR. ASSIST TURN AND REPOSTION Q 2HR. PM CARE DONE, SUCTION. ENDORSED ONCOMING NURSE FOLLOW PLAN OF CARE.
--- NOTE | 2020-03-31 20:00 | NUR ---
Received patient sedated and intubated on full vent support.Tolerating vent settings well. SR.VSS.NPO with OGT clamped and placement verified.FC to gravity no output noted. FC leaking.Kept clean and drY.Turned and repositioned.No acute distress noted.
[2020-04-01] VITALS (31 sets, daily range): BP systolic 99–142; BP diastolic 60–87
--- NOTE | 2020-04-01 | NUR ---
FSBS monitored and coverage given per sliding scale.Turned and repositioned. VS remains stable.
[2020-04-01] MEDS: BLOOD SUGAR DIAGNOSTIC 1 EACH STRIP IN SCH ×5 (00:15→23:38)
[2020-04-01] MEDS: INSULIN REGULAR, HUMAN 100 UNIT/ML 3 ML VIAL SQ PRN ×5 (00:16→23:39)
[2020-04-01] MEDS: IV D5/ 0.9% NACL 1,000 ML IV PRN ×3 (02:13→23:42)
[2020-04-01] MEDS: IPRATROPIUM NEB FS 0.5 MG/2.5 ML AMPUL.NEB NEB SCH ×6 (03:49→23:25)
[2020-04-01] MEDS: ALBUTEROL HALF STRENGTH 1.25 MG/3 ML VIAL.NEB NEB SCH ×6 (03:49→23:25)
--- NOTE | 2020-04-01 04:00 | NUR ---
Bed bath rendered.Noted bladder distended on palpation.Bladder scan done reading 999ml. No urine per drainage bag.Manjarrez leaking.Tried to irrigate but met with obstruction.Annie AUGUSTIN notified.Able to insert FR 18 Hu FC with some difficulty.Drained 1000 ml clear yellow urine. Patient SPO2 down to 65%.RT notified and increased FIO2 TO 100%.Continue monitoring.
[2020-04-01] MEDS: PIPERACILLIN /TAZOBACTAM 3.375 G in IV D5W 100 ML IV SCH ×3 (04:06→20:01)
[2020-04-01] MEDS: IV NS 0.9% 250 ML IV PRN (04:18)
[2020-04-01 04:35] LABS: HEMATOCRIT 38 % (39-51); HEMOGLOBIN 12.3 g/dL (13.5-17.5); LYMPHOCYTES # (AUTO) 0.9 /CMM (0.8-4.8); LYMPHOCYTES % (AUTO) 6.3 % (20.0-44.0); MEAN CORPUSCULAR HGB CONC 33 g/dl (31.0-36.0); MEAN CORPUSCULAR VOLUME 95 fL (80-96); MONOCYTES # (AUTO) 0.7 /CMM (0.1-1.30); MONOCYTES % (AUTO) 4.7 % (2.0-12.0); NEUTROPHILS # (AUTO) 12.7 /CMM (1.8-8.9); PLATELET COUNT (AUTO) 171 /CMM (150-450); RED BLOOD CELL COUNT(AUTO) 3.98 MIL/uL (4.5-6.0); WHITE BLOOD COUNT (AUTO) 14.3 K/uL (4.3-11.0)
[2020-04-01 05:01] LABS: CALCIUM, SERUM 8.9 mg/dL (8.5-10.1); CREATININE 1.1 mg/dL (0.6-1.3); POTASSIUM 3.6 mmol/L (3.5-5.1)
[2020-04-01] MEDS: HYDROCORTISONE SOD SUCCINATE 100 MG/2 ML VIAL IV SCH ×3 (05:42→20:48)
--- NOTE | 2020-04-01 07:15 | NUR ---
Patient appears comfortable.VSS.FC working well.Turned and repositioned.All due medications administered.All needs met.Report given to day shift for AVE.
--- NOTE | 2020-04-01 07:30 | NUR ---
RECEIVED PT NON VERBAL. OBTUNDED. INTUBATED WITH FULL VENT SUPPORT. NOT SEDATED. NPO GT CLAMPED. WILL CONTINUE TO MONITOR.
[2020-04-01 08:56] LABS: ABG OXYGEN SATURATION 82.1 % (92.0-98.5); ABG PCO2 35.1 mmHg (35.0-45.0); ABG PO2 46.4 mmHg (75.0-100.0); AaDO2 342.8 mmHg; O2Hb 82.1 % (94.0-97.0); PEEP,BG 5 cm H2O; SITE, ABG Right Radial; VT, ABG 500 mL
[2020-04-01] MEDS: MUPIROCIN OINT 2% 22 GM TUBE NS SCH ×2 (09:13→20:48)
[2020-04-01] MEDS: MODAFINIL 100 MG TABLET PO SCH (13:35)
--- NOTE | 2020-04-01 19:04 | NUR ---
PT REMAINS NON VERBAL. ORALLY INTUBATED / VENT DEPENDENT, WITH NO SEDATION. WILL ENDORSE TO NEXT SHIFT FOR AVE.
--- NOTE | 2020-04-01 20:00 | NUR ---
Received patient obtunded.DNR status.Maintained on same vent settings well tolerated.SR. VSS.OGT intact and in placed.Placement verified.FC to gravity drainage.IVF infusing well to SHIMA PICC LINE and site intact.Turned and repositioned.No acute distress noted.
--- NOTE | 2020-04-01 21:30 | NUR ---
Patient had runs of Vtach 8 beats resolved without interventions.No distress noted.VSS. Continue monitoring.
[2020-04-02] VITALS (36 sets, daily range): BP systolic 94–125; BP diastolic 52–78
--- NOTE | 2020-04-02 | NUR ---
FSBS monitored.Coverage given per SS.Turned and repositioned.VSS.
[2020-04-02] MEDS: IPRATROPIUM NEB FS 0.5 MG/2.5 ML AMPUL.NEB NEB SCH ×6 (03:34→23:07)
[2020-04-02] MEDS: ALBUTEROL HALF STRENGTH 1.25 MG/3 ML VIAL.NEB NEB SCH ×6 (03:34→23:07)
[2020-04-02] MEDS: PIPERACILLIN /TAZOBACTAM 3.375 G in IV D5W 100 ML IV SCH ×3 (04:00→20:00)
[2020-04-02 05:28] LABS: BASOPHILS % (AUTO) 0.1 % (0.0-2.0); HEMATOCRIT 35 % (39-51); LYMPHOCYTES # (AUTO) 0.8 /CMM (0.8-4.8); LYMPHOCYTES % (AUTO) 6.6 % (20.0-44.0); MEAN CORPUSCULAR HGB CONC 34 g/dl (31.0-36.0); MEAN CORPUSCULAR VOLUME 93 fL (80-96); MONOCYTES # (AUTO) 0.5 /CMM (0.1-1.30); MONOCYTES % (AUTO) 4.5 % (2.0-12.0); NEUTROPHILS # (AUTO) 10.2 /CMM (1.8-8.9); NEUTROPHILS % (AUTO) 88.8 % (43.0-81.0); PLATELET COUNT (AUTO) 126 /CMM (150-450); RED BLOOD CELL COUNT(AUTO) 3.81 MIL/uL (4.5-6.0); WHITE BLOOD COUNT (AUTO) 11.4 K/uL (4.3-11.0)
[2020-04-02 05:39] LABS: CALCIUM, SERUM 8.5 mg/dL (8.5-10.1)
[2020-04-02] MEDS: HYDROCORTISONE SOD SUCCINATE 100 MG/2 ML VIAL IV SCH ×3 (05:39→20:58)
[2020-04-02] MEDS: BLOOD SUGAR DIAGNOSTIC 1 EACH STRIP IN SCH ×4 (05:39→23:58)
[2020-04-02] MEDS: INSULIN REGULAR, HUMAN 100 UNIT/ML 3 ML VIAL SQ PRN ×4 (05:41→23:59)
--- NOTE | 2020-04-02 07:24 | NUR ---
Patient resting.VS remains stable.SR.Tolerating vent settings.Bathed and complete linens changed.Turned and repositioned.No acute distress noted.No significant change noted. All needs attended.Endorse to day shift for AVE.
--- NOTE | 2020-04-02 08:00 | NUR ---
COFFEE MACHINE TECHNICIAN RESTRAINTS REMOVED.
[2020-04-02] MEDS: MODAFINIL 100 MG TABLET PO SCH (08:14)
[2020-04-02] MEDS: MUPIROCIN OINT 2% 22 GM TUBE NS SCH ×2 (08:15→20:58)
[2020-04-02 08:54] LABS: ABG BASE EXCESS 7.4 mmol/L; ABG PCO2 36.6 mmHg (35.0-45.0); ABG PH 7.536 (7.350-7.450); ABG PO2 117.3 mmHg (75.0-100.0); AaDO2 270.2 mmHg; COHb 0.3 % (0.5-1.5); MetHb 0.3 % (0.0-1.5); O2Hb 97.4 % (94.0-97.0); SITE, ABG Right Radial
[2020-04-02] MEDS: POTASSIUM CL. PREMIX PERIPHER. 50 ML IV SCH ×5 (10:23→14:43)
[2020-04-02] MEDS: IV D5/ 0.9% NACL 1,000 ML IV PRN ×2 (12:00→23:11)
--- NOTE | 2020-04-02 20:00 | NUR ---
Patient lethargic nonverbal non interactive remain intubated on full vent support.Tolerating vent settings well.SR.VSS.NPO status with OGT clamped.Placement verified.IVF infusing well. FC to gravity.Turned and repositioned.No acute distress noted.
[2020-04-03] VITALS (25 sets, daily range): BP systolic 114–142; BP diastolic 63–92
[2020-04-03] MEDS: ALBUTEROL HALF STRENGTH 1.25 MG/3 ML VIAL.NEB NEB SCH ×6 (03:19→23:01)
[2020-04-03] MEDS: IPRATROPIUM NEB FS 0.5 MG/2.5 ML AMPUL.NEB NEB SCH ×6 (03:19→23:01)
[2020-04-03] MEDS: PIPERACILLIN /TAZOBACTAM 3.375 G in IV D5W 100 ML IV SCH ×3 (04:01→20:15)
[2020-04-03] MEDS: HYDROCORTISONE SOD SUCCINATE 100 MG/2 ML VIAL IV SCH ×3 (05:05→20:15)
[2020-04-03] MEDS: BLOOD SUGAR DIAGNOSTIC 1 EACH STRIP IN SCH ×3 (05:15→18:24)
[2020-04-03] MEDS: INSULIN REGULAR, HUMAN 100 UNIT/ML 3 ML VIAL SQ PRN ×3 (05:16→18:27)
--- NOTE | 2020-04-03 07:15 | NUR ---
Patient resting.VS remains stable.SR.Tolerating vent settings well.All needs attended. No significant change noted during the night.Report given to day shift for AVE.
--- NOTE | 2020-04-03 07:30 | NUR ---
SLOT OPERATIONS DIRECTOR PATIENT IN BED, NO S/S OF DISTRESS, VENT TRACH IN PLACE SETTINGS 18 AC, 450TV, 505 FIO2, PEEP5, O2 SAT >92%, TELE MONITOR IN PLACE SINUS RHYTHM, OG TUBE IN PLACE CLAMPED, REYES IN PLACE DRAINING CLEAR YELLOW URINE, R UA PICC RUNNING D5NS AT 100ML/HR, INTACT CLEAN FLUSHES WELL, BED IN LOWEST LOCKED POSITION CALL LIGHT WITHIN REACH WILL CONTINUE TO MONITOR.
[2020-04-03 08:13] LABS: ABG BASE EXCESS 4.2 mmol/L; ABG OXYGEN SATURATION 98.6 % (92.0-98.5); ABG PCO2 35.1 mmHg (35.0-45.0); ABG PH 7.507 (7.350-7.450); ABG PO2 141.4 mmHg (75.0-100.0); AaDO2 103.4 mmHg; COHb 0.3 % (0.5-1.5); O2Hb 98.3 % (94.0-97.0); PEEP,BG 5 cm H2O; SITE, ABG Right Radial; VT, ABG 450 mL
[2020-04-03] MEDS: MODAFINIL 100 MG TABLET PO SCH (09:34)
[2020-04-03] MEDS: MUPIROCIN OINT 2% 22 GM TUBE NS SCH ×2 (09:35→20:18)
[2020-04-03] MEDS: IV D5/ 0.9% NACL 1,000 ML IV PRN ×2 (09:36→20:33)
--- NOTE | 2020-04-03 12:00 | NUR ---
RUNNER MAN CALLED THE SISTER TO GET CONSENT FOR CT OF THE HEAD WITH CONTRAST. HAD UMM LISTEN AND COSIGN CONSENT.
--- NOTE | 2020-04-03 16:00 | NUR ---
EXECUTIVE SALES MANAGER NOTIFIED DORCAS OF DVT PRESENCE IN R ARM RESULTED BY ULTRASOUND. ORDERED TO SWITCH PICC LINE TO THE OTHER ARM AND START ELIQUIS 5MG BID. NEERU SAID PROTOCOL IS TO NOT REMOVE THE PICC SO TO JUST LEAVE IT IN PLACE FOR NOW AND USE PERIPHERAL IVs ON THE LEFT ARM FOR NOW.
[2020-04-03] MEDS: APIXABAN 5 MG TABLET PO SCH (17:09)
--- NOTE | 2020-04-03 19:25 | NUR ---
PT REC'D ORALLY INTUBATED VIA ETT 8.0 SECURED @ 24 CM LIP LINE [facility] WITH THE SETTINGS OF AC 18, 400,50%,PEEP 5. ET TUBE SECURED AND PATENT. BILATERAL CHEST RISE NOTED. Q4 BREATHING TX GIVEN PER MD'S ORDER . NO ADVERSE REACTION NOTED. SX DONE . ALARMS ARE SET AND AUDIBLE. VENT PLUGGED INTO RED OUTLET. AMBU BAG@ BEDSIDE. WILL CONTINUE TO MONITOR T/O THE SHIFT.
--- NOTE | 2020-04-03 19:45 | NUR ---
RN NOTES RECEIVED PT IN BED, INTUBATED ON VENT. OGT IN PLACE, CLAMPED. PT ON NPO. NO RESP DISTRESS NOTED. O2 SAT AT 98 %. WITH IV ON R WRIST AND R FA PATENT AND INTACT, FLUSHED. D5NS RUNNING AT 100ML/HR. NO SIGNS OF INFILTRATION NOTED. REYES CATH IN PLACE W/ CLEAR URINE OUTPUT. ALL SAFETY MEASURES IMPLEMENTED PER PROTOCOL. SIDE RAILS UP. BED LOCKED IN LOWEST POSITION.
[2020-04-04] VITALS (39 sets, daily range): BP systolic 104–147; BP diastolic 52–102
[2020-04-04] MEDS: BLOOD SUGAR DIAGNOSTIC 1 EACH STRIP IN SCH ×4 (00:01→17:40)
[2020-04-04] MEDS: INSULIN REGULAR, HUMAN 100 UNIT/ML 3 ML VIAL SQ PRN ×4 (00:02→17:39)
[2020-04-04] MEDS: IPRATROPIUM NEB FS 0.5 MG/2.5 ML AMPUL.NEB NEB SCH ×6 (03:36→23:11)
[2020-04-04] MEDS: ALBUTEROL HALF STRENGTH 1.25 MG/3 ML VIAL.NEB NEB SCH ×6 (03:36→23:11)
[2020-04-04] MEDS: HYDROCORTISONE SOD SUCCINATE 100 MG/2 ML VIAL IV SCH ×3 (04:33→21:03)
[2020-04-04] MEDS: PIPERACILLIN /TAZOBACTAM 3.375 G in IV D5W 100 ML IV SCH ×3 (04:33→20:10)
[2020-04-04 05:08] LABS: CREATININE 0.8 mg/dL (0.6-1.3)
[2020-04-04 05:17] LABS: BASOPHILS % (AUTO) 0.1 % (0.0-2.0); HEMATOCRIT 36 % (39-51); HEMOGLOBIN 12.2 g/dL (13.5-17.5); LYMPHOCYTES # (AUTO) 0.5 /CMM (0.8-4.8); LYMPHOCYTES % (AUTO) 4.6 % (20.0-44.0); MEAN CORPUSCULAR HGB CONC 34 g/dl (31.0-36.0); MEAN CORPUSCULAR VOLUME 93 fL (80-96); MONOCYTES # (AUTO) 0.2 /CMM (0.1-1.30); MONOCYTES % (AUTO) 1.5 % (2.0-12.0); NEUTROPHILS # (AUTO) 10.1 /CMM (1.8-8.9); NEUTROPHILS % (AUTO) 93.8 % (43.0-81.0); PLATELET COUNT (AUTO) 115 /CMM (150-450); RED BLOOD CELL COUNT(AUTO) 3.87 MIL/uL (4.5-6.0); WHITE BLOOD COUNT (AUTO) 10.7 K/uL (4.3-11.0)
[2020-04-04 05:37] LABS: POTASSIUM 2.6 mmol/L (3.5-5.1)
[2020-04-04] MEDS: IV D5/ 0.9% NACL 1,000 ML IV PRN ×2 (06:52→17:08)
--- NOTE | 2020-04-04 07:06 | NUR ---
RN NOTE PT POTASSIUM AT 2.6. PAGED DR ORTIZ. ORDERED KCL 80MEQ IV. NOTED AND CARRIED OUT.
--- NOTE | 2020-04-04 07:15 | NUR ---
RN NOTES PT TOLERATING VENT SETTINGS WITH O2 SAT OF 98%. NO RESP DISTRESS NOTED. PT OPEN EYES. NO AGITATION NOTED. CONTINUE ON NPO. IV D5NS INFUSING WELL ON LAC NO SIGNS OF INFILTRATION NOTED. REYES INDWELLING WELL. VS STABLE. ON FREQUENT VISUAL CHECK. KEPT HOB ELEVATED, SIDE RAILS UP. BED LOCKED IN LOWEST POSITION.
[2020-04-04] MEDS ORDERED: POTASSIUM CHLORIDE 10 MEQ/50 ML PREMIXED IVPB FOR PERIPHERAL LINE IV ONE (07:30)
--- NOTE | 2020-04-04 08:00 | NUR ---
PT RECEIVED IN BED ON PRESCRIBED VENT SETTINGS ETT 10/25, AC 18, TV 400, FIO2 50%, PEEP 5. NO SOB. PT NON-RESPONSIVE, DOES NOT FOLLOW COMMANDS. PT ON MONITOR SHOWING SR. PT HAS REYES IN PLACE DRAINING CLEAR YELLOW URINE. PT HAS SACRAL STAGE 2 WOUND. PT IS NPO EXCEPT MEDS WITH OGT IN PLACE, ASPIRATED AND FLUSHED. PT HAS SHIMA PICC, NOT IN USE D/T RIGHT ARM DVT, WILL F/U WITH MD IF ABLE TO REMOVE LINE. LFA AND LAC IV INTACT AND FLUSHED WELL. PT TO HAVE HEAD CT WITH CONTRAST TODAY, CONSENT VERIFIED IN CHART. WILL CONTINUE TO MONITOR
[2020-04-04] MEDS: POTASSIUM CL. PREMIX PERIPHER. 50 ML IV SCH ×9 (08:01→17:40)
[2020-04-04] MEDS: MODAFINIL 100 MG TABLET PO SCH (08:01)
[2020-04-04] MEDS: MUPIROCIN OINT 2% 22 GM TUBE NS SCH ×2 (08:01→21:14)
[2020-04-04] MEDS: APIXABAN 5 MG TABLET PO SCH (08:02)
--- NOTE | 2020-04-04 11:15 | NUR ---
PT TRANSPORTED AND RETURNED FROM HEAD CT WO CONTRAST. RESULTS SHOWN TO MD MORENO AND MD TOSCANO, NEURO CONSULTED
[2020-04-04] MEDS: APIXABAN 5 MG TABLET NG SCH (17:07)
[2020-04-04] MEDS: GLUCERNA 1.2 1,000 ML BOTTLE NG PRN (17:20)
--- NOTE | 2020-04-04 17:35 | NUR ---
PER MELY GRIMES TO DC PICC LINE INSERTION. PATIENT HAS 2 VIABLE PIV, NO PRESSORS OR SEDATION. IV LINES TO BE BE LEFT IN PATIENT DUE TO POSITIVE THROMBI IN RIGHT EXTREMITY
--- NOTE | 2020-04-04 18:00 | NUR ---
MD DORCAS BOONE TO INITIATE PT ON TUBE FEEDING RECOMMENDED BY AIR CARGO SPECIALIST; GLUCERNA 1.2 AT 20 ML/HR, TO BE INCREASED TOLERATED TO GOAL RATE OF 60 ML/HR
--- NOTE | 2020-04-04 20:47 | NUR ---
RECEIVED PT INTUBATED 8.0 ETT SECURED AT 25CM. NO RESP DISTRESS. PT TOLERATING VENT SETTINGS. SX'D SML AMT OF THICK CRISTOBAL SECRETIONS. ETT CUFF CHECKED. VENT ALARMS AUDIBLE. CONTINUE TO MONITOR. Addendum: 04/04/20 at 204 by AYAD GARCIA RT Amended: Links added.
[2020-04-05] VITALS (54 sets, daily range): BP systolic 44–168; BP diastolic 16–107
[2020-04-05] MEDS: BLOOD SUGAR DIAGNOSTIC 1 EACH STRIP IN SCH ×4 (01:03→18:21)
[2020-04-05] MEDS: INSULIN REGULAR, HUMAN 100 UNIT/ML 3 ML VIAL SQ PRN ×4 (01:04→18:28)
[2020-04-05] MEDS: ALBUTEROL HALF STRENGTH 1.25 MG/3 ML VIAL.NEB NEB SCH ×6 (03:01→23:17)
[2020-04-05] MEDS: IPRATROPIUM NEB FS 0.5 MG/2.5 ML AMPUL.NEB NEB SCH ×6 (03:01→23:17)
[2020-04-05] MEDS: IV D5/ 0.9% NACL 1,000 ML IV PRN (03:32)
[2020-04-05] MEDS: PIPERACILLIN /TAZOBACTAM 3.375 G in IV D5W 100 ML IV SCH ×3 (04:05→20:25)
[2020-04-05 04:34] LABS: BASOPHILS % (AUTO) 0.3 % (0.0-2.0); HEMATOCRIT 37 % (39-51); HEMOGLOBIN 12.4 g/dL (13.5-17.5); LYMPHOCYTES # (AUTO) 0.5 /CMM (0.8-4.8); LYMPHOCYTES % (AUTO) 4.6 % (20.0-44.0); MEAN CORPUSCULAR HGB CONC 33 g/dl (31.0-36.0); MEAN CORPUSCULAR VOLUME 93 fL (80-96); MONOCYTES # (AUTO) 0.3 /CMM (0.1-1.30); MONOCYTES % (AUTO) 2.6 % (2.0-12.0); NEUTROPHILS # (AUTO) 10.4 /CMM (1.8-8.9); NEUTROPHILS % (AUTO) 92.5 % (43.0-81.0); PLATELET COUNT (AUTO) 138 /CMM (150-450); WHITE BLOOD COUNT (AUTO) 11.2 K/uL (4.3-11.0)
[2020-04-05 04:50] LABS: CREATININE 0.9 mg/dL (0.6-1.3)
[2020-04-05 05:02] LABS: POTASSIUM 2.7 mmol/L (3.5-5.1)
[2020-04-05] MEDS: HYDROCORTISONE SOD SUCCINATE 100 MG/2 ML VIAL IV SCH ×3 (05:04→20:51)
--- NOTE | 2020-04-05 05:30 | NUR ---
FiO2 titrated to 40% RN notified.
--- NOTE | 2020-04-05 06:00 | NUR ---
RECEIVED CALL FROM LAB TALKED TO ALEX EDUARDO IS 2.7. PAGED SOURCE WATER PROTECTION SPECIALIST, AWAITING FOR CALL BACK.
--- NOTE | 2020-04-05 06:30 | NUR ---
PAGE ASPHALT ENGINEER REGARDING POTASSIUM 2.7, AWAITING FOR CALL BACK.
--- NOTE | 2020-04-05 07:00 | NUR ---
ENDORSED TO JENNY MACIAS TO FOLLOW UP WITH POTASSIUM LEVEL.
[2020-04-05] MEDS: POTASSIUM PHOSPHATE MM 7.5 MMOL in IV NS 0.9% 100 ML IV SCH ×2 (08:16→11:22)
[2020-04-05] MEDS: MODAFINIL 100 MG TABLET PO SCH (08:17)
[2020-04-05] MEDS: APIXABAN 5 MG TABLET NG SCH ×2 (08:18→16:55)
[2020-04-05] MEDS: MUPIROCIN OINT 2% 22 GM TUBE NS SCH ×2 (08:19→20:51)
[2020-04-05] MEDS: PHENYLEPHRINE 50 MG in IV NS 0.9% 245 ML IV PRN ×3 (12:12→23:13)
[2020-04-05] MEDS: IV D5/0.45 NACL 1,000 ML IV PRN (13:15)
[2020-04-05] MEDS ORDERED: NOREPINEPHRINE 8 MG in IV NS 0.9% 242 ML IV PRN (16:30)
[2020-04-05] MEDS: IV NS 0.9% 250 ML IV PRN (16:35)
[2020-04-06] VITALS (78 sets, daily range): BP systolic 61–225; BP diastolic 13–117
[2020-04-06] MEDS: BLOOD SUGAR DIAGNOSTIC 1 EACH STRIP IN SCH ×5 (00:31→23:47)
[2020-04-06] MEDS: INSULIN REGULAR, HUMAN 100 UNIT/ML 3 ML VIAL SQ PRN ×5 (00:32→23:44)
[2020-04-06] MEDS: ALBUTEROL HALF STRENGTH 1.25 MG/3 ML VIAL.NEB NEB SCH ×6 (03:10→23:32)
[2020-04-06] MEDS: IPRATROPIUM NEB FS 0.5 MG/2.5 ML AMPUL.NEB NEB SCH ×6 (03:10→23:32)
[2020-04-06] MEDS: IV D5/0.45 NACL 1,000 ML IV PRN (03:20)
[2020-04-06] MEDS: PIPERACILLIN /TAZOBACTAM 3.375 G in IV D5W 100 ML IV SCH ×3 (04:11→22:15)
[2020-04-06 04:29] LABS: BASOPHILS % (AUTO) 0.1 % (0.0-2.0); HEMATOCRIT 39 % (39-51); LYMPHOCYTES # (AUTO) 0.6 /CMM (0.8-4.8); LYMPHOCYTES % (AUTO) 2.8 % (20.0-44.0); MEAN CORPUSCULAR HGB CONC 33 g/dl (31.0-36.0); MEAN CORPUSCULAR VOLUME 94 fL (80-96); MONOCYTES # (AUTO) 0.8 /CMM (0.1-1.30); MONOCYTES % (AUTO) 3.7 % (2.0-12.0); NEUTROPHILS # (AUTO) 20.6 /CMM (1.8-8.9); NEUTROPHILS % (AUTO) 93.4 % (43.0-81.0); PLATELET COUNT (AUTO) 175 /CMM (150-450); RED BLOOD CELL COUNT(AUTO) 4.19 MIL/uL (4.5-6.0)
[2020-04-06 04:35] LABS: CREATININE 1.1 mg/dL (0.6-1.3); MAGNESIUM 1.9 mg/dL (1.8-2.4); PHOSPHORUS 2.5 mg/dL (2.5-4.9)
[2020-04-06] MEDS: ACETAMINOPHEN 325 MG TABLET PO PRN ×2 (04:58→23:47)
[2020-04-06] MEDS: HYDROCORTISONE SOD SUCCINATE 100 MG/2 ML VIAL IV SCH ×3 (04:58→22:19)
[2020-04-06] MEDS: PHENYLEPHRINE 50 MG in IV NS 0.9% 245 ML IV PRN ×2 (05:30→12:34)
[2020-04-06] MEDS: GLUCERNA 1.2 1,000 ML BOTTLE NG PRN (06:36)
[2020-04-06] MEDS: MODAFINIL 100 MG TABLET PO SCH (08:35)
[2020-04-06] MEDS: POTASSIUM CL. PREMIX PERIPHER. 50 ML IV SCH ×4 (08:36→11:47)
[2020-04-06] MEDS: APIXABAN 5 MG TABLET NG SCH ×2 (08:40→17:03)
[2020-04-06] MEDS: MUPIROCIN OINT 2% 22 GM TUBE NS SCH ×2 (09:13→21:00)
--- NOTE | 2020-04-06 14:09 | NUR ---
SS consult:Next of Kin SS consult requested to determine pt.s decision maker. The pt. is a 64 year old male in ICU. FERNANDA called the pt.s sister, Criss Lynn [phone] to gather collateral information. Per Criss, the pt.s ex- and two children, (son)Cristóbal Lynn [phone] & (daughter) Jeannette Lynn reside in [facility]. Per Criss, the pt.s mother resides in [place]. However, per EMR, the pt.s mother has a restraining order against the pt. FERNANDA requested Criss to provide SW number to Cristóbal to set up meeting with Attending physician for bioethics/ code status decisions. Criss was receptive and stated she will arrange for the pt.s eldest son, Cristóbal Lynn to contact FERNANDA. FERNANDA will follow up and make an international call to Cristóbal if not hear from by the end of today 04/06/2020. SW will be available as needed.
--- NOTE | 2020-04-06 21:10 | NUR ---
agricultural engineer. initial assessment. received the pt rest on the bed. orally intubated, pt is obtunded. ett #8,lip 24, ac 18,tv 400, fio2 50%, peep 5. sat 98%. no acute distress noted. residential monitor showinf nsr, iv lt arm 18g. rt hand dvt. ogt intact. glucerna 20ml/h, hob elevated, fc patent. radha 1mcg/kg/min,ivf d51/2ns 100ml/h. hob elevated. will continue to monitor vitals.
[2020-04-07] VITALS (69 sets, daily range): BP systolic 76–175; BP diastolic 45–119
--- NOTE | 2020-04-07 01:56 | NUR ---
icu staff nurse. remaining same vent setting tolerated well. sat 98%. no acute distress noted. cardiac tech showing nsr. no changes.
[2020-04-07] MEDS: ALBUTEROL HALF STRENGTH 1.25 MG/3 ML VIAL.NEB NEB SCH ×4 (03:49→15:06)
[2020-04-07] MEDS: IPRATROPIUM NEB FS 0.5 MG/2.5 ML AMPUL.NEB NEB SCH ×4 (03:49→15:06)
--- NOTE | 2020-04-07 03:52 | NUR ---
agricultural service technician am care given. linen changed. remaining same vent setting tolerated well. sat 98%. no acute distress noted. playground monitor showing nsr. iv rt upper arm picc line. ivf d51/2ns 100ml/h,radha 1mcg/kg/min, fc patent. urine draining. hob elevated. ngt feeding tolerated well. turn and reposition q2h. will continue to monitor vitals.
[2020-04-07] MEDS: PIPERACILLIN /TAZOBACTAM 3.375 G in IV D5W 100 ML IV SCH ×2 (04:13→12:32)
[2020-04-07] MEDS: HYDROCORTISONE SOD SUCCINATE 100 MG/2 ML VIAL IV SCH ×2 (04:13→12:27)
[2020-04-07] MEDS: IV NS 0.9% 250 ML IV PRN (04:23)
[2020-04-07 05:03] LABS: BASOPHILS % (AUTO) 0.1 % (0.0-2.0); HEMATOCRIT 35 % (39-51); HEMOGLOBIN 11.6 g/dL (13.5-17.5); LYMPHOCYTES # (AUTO) 0.6 /CMM (0.8-4.8); LYMPHOCYTES % (AUTO) 4.3 % (20.0-44.0); MEAN CORPUSCULAR HGB CONC 33 g/dl (31.0-36.0); MEAN CORPUSCULAR VOLUME 93 fL (80-96); MONOCYTES # (AUTO) 0.5 /CMM (0.1-1.30); MONOCYTES % (AUTO) 3.4 % (2.0-12.0); NEUTROPHILS # (AUTO) 12.4 /CMM (1.8-8.9); NEUTROPHILS % (AUTO) 92.2 % (43.0-81.0); PLATELET COUNT (AUTO) 165 /CMM (150-450); RED BLOOD CELL COUNT(AUTO) 3.74 MIL/uL (4.5-6.0); WHITE BLOOD COUNT (AUTO) 13.5 K/uL (4.3-11.0)
[2020-04-07 05:23] LABS: CALCIUM, SERUM 8.1 mg/dL (8.5-10.1); CREATININE 1.3 mg/dL (0.6-1.3); POTASSIUM 3.6 mmol/L (3.5-5.1)
[2020-04-07] MEDS: BLOOD SUGAR DIAGNOSTIC 1 EACH STRIP IN SCH ×2 (06:26→12:28)
--- NOTE | 2020-04-07 08:00 | NUR ---
RN NOTES RECEIVED PATIENT ON EET AND TOLERATING EET VENT SETTING WELL, NO ACUTE RESPIRATORY DISTRESS. EET #8,LIP 24, AC 18, TV 400, FIO22 50%, PEEP5. SATURATION ON MONITOR SHOWS 98%, V/S WNL, NSR . PATIENT HAS EDEMA ON RIGHT ARM AND DVT, BUT STILL IV ON PER NIGHT NURSE REPORT . OGT INTACT, AND RESIDUAL 100CC, ALSO CHECKED PLACEMENT. CONTINUED GLUCERNA 60 CC/HR. KEEP HOB ELEVATED ALL THE TIME, REYES DRAINING BY GRAVITY. INFUSING D51/2 NS AT 75 ML/HR. PATIENT DNR. ASSIST TURN AND REPOSTION Q2 HR. WILL MONITORING.
[2020-04-07] MEDS: MODAFINIL 100 MG TABLET PO SCH (08:38)
[2020-04-07] MEDS: APIXABAN 5 MG TABLET NG SCH (08:39)
[2020-04-07] MEDS: MUPIROCIN OINT 2% 22 GM TUBE NS SCH (08:39)
--- NOTE | 2020-04-07 09:27 | NUR ---
Clinical Social Work Note/ Bioethics Consultation Dr Pineda consulted on this case and feels that there is no DPOA and patient is estranged from alleged family members. Thus, there is no next of kin. Dr Pineda advised that this hospital is under no obligation to continue delivering futile care to this patient. Tara Wyatt [facility] agreed to notify "man alleging to be son " in [place] that this hospital will no longer be delivering futile care to patient. Dr Martinez attending physician was on telephone call with Dr Pineda and is in agreement with plan.Comfort care will be provided.
[2020-04-07] MEDS: IV D5/0.45 NACL 1,000 ML IV PRN (09:34)
[2020-04-07] MEDS: INSULIN REGULAR, HUMAN 100 UNIT/ML 3 ML VIAL SQ PRN (12:30)
--- NOTE | 2020-04-07 12:33 | NUR ---
RN NOTES BS-310 MG/DL COVERAGE GIVEN, AM CARE DONE, SUCTION, MOUTH CARE , DUE MEDIATION ADMINISTERED, INFUSING ZOSYN 25 ML EXTENDED DOSE ORDERED. PER SW WAITING FAMILY SON FOR DECISION COMFORT CARE.
--- NOTE | 2020-04-07 13:28 | NUR ---
SS Consult: This SW has been in communication with the pt.s next of Kin, (son) Cristóbal Lynn [phone] on 04/06/2020 & 04/07/2020 who resides in [facility]. Cristóbal stated that the pt.s sister, Criss [phone] has kept the family updated regarding pt.s condition. SW advised Cristóbal regarding Directive that resulted from bioethics meeting w/ patients physician: Dr. Martinez & Dr. Pineda. Pt.s son expressed understanding and was agreeable to plan. SW addressed pt.s questions. Cristóbal stated he will be calling weekly to get updates regarding pt. and would like to be notified if pt. expires. Per Cristóbal, if he cannot be reached it is okay to inform pt.s sister, Criss [phone]. Noted. SW or nursing staff to follow up as needed.
--- NOTE | 2020-04-07 16:01 | NUR ---
RN NOTES GET TO MD ORDERS IS PATIENT IS COMFORT CARE, STOP ALL MEDICATION, FEEDING, AND REMOVE EET. START MORPHINE DRIP 8MG/HR. ORDER TAKEN AND CARRIED OUT.
[2020-04-07] MEDS ORDERED: MORPHINE SULFATE INJ 2 MG/ML DISP.SYRIN IV SCH (17:00)
[2020-04-07] MEDS ORDERED: MORPHINE SULFATE PF DRIP 250 MG in IV D5W 240 ML IV PRN (17:30)
--- NOTE | 2020-04-07 18:13 | NUR ---
RN NOTES STARTED MORPHINE DRIP AT THIS TIME 1 ML/HR, NOTIFIED RT TO REMOVAL OF EET SETTING. WILL INDORSED ONCOMING NURSE FOLLOW PLAN OF CARE.
--- NOTE | 2020-04-07 19:30 | NUR ---
HOSPITALITY COORDINATOR MORPHINE DRIP AT 13.3 MG/HR DURING BEDSIDE REPORT; NOTIFIED DAY SHIFT NURSE AND SHE DECREASED TO 1 MG/HR. PER REPORT PT FOR TERMINAL EXTUBATION' PENDING ORDER.
--- NOTE | 2020-04-07 20:00 | NUR ---
DOCUMENT CONTROL SUPERVISOR REMOVED LEFT AC IV IT IS LEAKING
--- NOTE | 2020-04-07 20:30 | NUR ---
TERMINAL EXTUBATION DONE PER MD'S ORDER. PLACED PT ON 2L NC. RN EZEQUIEL TUBBS
--- NOTE | 2020-04-07 20:35 | NUR ---
BLASTING CAP ASSEMBLER PT EXTUBATED BY RT PLACED ON O2 2L NC.
[2020-04-08] VITALS (12 sets, daily range): BP systolic 76–113; BP diastolic 51–71
[2020-04-08] MEDS ORDERED: MORPHINE SULFATE PF DRIP 250 MG in IV D5W 240 ML IV PRN ×2 (06:30→08:30)
[2020-04-08] MEDS ORDERED: MORPHINE SULFATE INJ 2 MG/ML DISP.SYRIN IV ONE (06:30)
--- NOTE | 2020-04-08 07:15 | NUR ---
RN NOTES RECEIVED PATIENT UNRESPONSIVE , ON MORPHIBE DRIP @ 9MG/HR , 2LPM NC SPO2 OF 85% , AGONAL BREATHING NOTED , SR 85 ON BEDSIDE MONITOR , FC VIA GRAVITY , IV OF LFA # 18 G WITH MORPHINE SULFATE @9MG/HR , KEPT PT COMFORTABLE , WILL CONTINUE TO MONITOR .
--- NOTE | 2020-04-08 08:30 | NUR ---
RN NOTES SEEN AND EVALUATED BY DR TOSCANO , PT CURRENTLY @ 12MG OF MORPHINE MAX , PER MD DOSE TO 20 , INCREASE MAX DOSE TO 20MG , ORDER CARRIED OUT
--- NOTE | 2020-04-08 11:26 | NUR ---
RN NOTES TRANSFERED PT TO ROOM 310 - 1 , ON MORPHIBE DRIP @ 20MG/HR , 2LPM NC SPO2 OF 75% , AGONAL BREATHING NOTED , ST115 ON BEDSIDE MONITOR , FC VIA GRAVITY , IV OF LFA # 18 G WITH MORPHINE SULFATE @20MG/HR , KEPT PT COMFORTABLE , REPORT GIVEN TO AMANDA FOR CONTINUITY OF CARE .
--- NOTE | 2020-04-08 11:50 | NUR ---
MS/RN NOTE RECEIVED THE PATIENT FROM ICU. THE PATIENT IS IN BED. NOT ALERT OR ORIENTED. PATIENT IS ON OXYGEN AT 2L/MIN VIA NASAL CANNULA. RESPIRATION REGULAR AND UNLABORED. RESPIRATION RATE IS 20 BREATHS/MIN. PATIENT IS MORPHINE DRIP AT 20 MG/HR. BED LOW AND LOCKED. SIDE RAILS UP X3. CALL LIGHT WITHIN REACH. WILL CONTINUE TO MONITOR.
--- NOTE | 2020-04-08 15:45 | NUR ---
MS/RN NOTE PATIENT PRONOUNCED .
--- NOTE | 2020-04-08 15:50 | NUR ---
MS/RN NOTE BECK OPERATOR IS MADE AWARE.
--- NOTE | 2020-04-08 15:50 | NUR ---
MS/RN NOTE DR TOSCANO MADE AWARE OF PATIENT PASSING AWAY.
--- NOTE | 2020-04-08 15:58 | NUR ---
MS/RN NOTE CALLED [facility].
--- NOTE | 2020-04-08 16:02 | NUR ---
MS/RN NOTE LEFT MESSAGE TO SISTER GISELA TO CALL US BACK. WILL CONTINUE TO FOLLOW UP WITH HER.
--- NOTE | 2020-04-08 17:45 | NUR ---
MS/RN NOTE SPOKE WITH SISTER GISELA AND PER SISTER SHE WILL CALL US BACK TOMORROW TO INFORM ABOUT ARRANGEMENT. CHANGE NURSE IS MADE AWARE.
--- NOTE | 2020-04-08 17:47 | NUR ---
MS/RN NOTE PATIENT IS IN THE [place].
== END 2020-04-08 18:21 | disposition expired | DRG 870 ==
LOC: ICU 09:15 → MED 04-08 11:14
PROVIDERS: ADMIT Internal Medicine; ATTEND Internal Medicine
PROC: 5A1955Z Respiratory Ventilation, Greater than 96 Consecutive Hours (ICD-10-PCS; principal; 2020-03-28)
PROC: 0BH17EZ Insertion of Endotracheal Airway into Trachea, Via Natural or Artificial Opening (ICD-10-PCS; 2020-03-28)
PROC: 05H933Z Insertion of Infusion Device into Right Brachial Vein, Percutaneous Approach (ICD-10-PCS; 2020-03-31)
DX: A41.9 Sepsis, unspecified organism (principal); R65.21 Severe sepsis with septic shock; J96.91 Respiratory failure, unspecified with hypoxia; G93.41 Metabolic encephalopathy; N17.0 Acute kidney failure with tubular necrosis; J69.0 Pneumonitis due to inhalation of food and vomit; E87.2 Acidosis; C95.91 Leukemia, unspecified, in remission; E27.40 Unspecified adrenocortical insufficiency; E87.0 Hyperosmolality and hypernatremia; Z66 Do not resuscitate; Z51.5 Encounter for palliative care; Z85.46 Personal history of malignant neoplasm of prostate; I10 Essential (primary) hypertension; F31.9 Bipolar disorder, unspecified; E78.5 Hyperlipidemia, unspecified; E11.65 Type 2 diabetes mellitus with hyperglycemia; F25.9 Schizoaffective disorder, unspecified; E86.1 Hypovolemia
CPT/HCPCS: 31720; 36415; 36600; 70450-TC; 71045-TC; 76770-TC; 80048-TC; 80053-TC; 81001; 82140-TC; 82533; 82550-TC; 82570-TC; 82803-TC; 82962-TC; 83735-TC; 83970; 84100-TC; 84155; 84155-TC; 84165; 84300-TC; 84484-TC; 85025-TC; 87081-TC; 93880-TC; 93970-TC; 93971-TC; 94002-TC; 94003-TC; 94760-TC; 94761-TC; 94799-TC; 95819-TC; A6253; C1751; G0378; J1720; J1815; J2060; J2270; J2274; J2370; J2543; J2920; J3480; J3490; J7030; J7040; J7042; J7050; J7060